=== PATIENT | female | born 1960 | race Caucasian/White ===

== ENCOUNTER 2022-01-11 11:04 | Emergency (ER) | payer OTHER, SELFPAY ==
--- NOTE | ~2022-01-11 | XR_ITS ---
EXAMINATION: XR CHEST CLINICAL INFORMATION: Chest tightness COMPARISON: None TECHNIQUE: Portable upright AP view of the chest was obtained. FINDINGS: Lungs are clear. There is no pneumothorax, pleural reaction, infiltrate, or groundglass opacity. The costophrenic sulci are clear. The heart is normal in size. The vascularity is normal. The hilar and mediastinal contours and visualized bony structures are unremarkable. XR/XR chest 1V IMPRESSION: Unremarkable examination.
[2022-01-11 11:07] VITALS: BMI 27.4
--- NOTE | 2022-01-11 11:09 | ECG_ITS ---
Test Reason : chest pressure Blood Pressure : / mmHG Vent. Rate : 116 BPM Atrial Rate : 116 BPM P-R Int : 166 ms QRS Dur : 076 ms QT Int : 326 ms P-R-T Axes : 071 079 045 degrees QTc Int : 453 ms Sinus tachycardia Possible Left atrial enlargement Borderline ECG No previous ECGs available Referred By: Generic ED Physician Electronically Signed By:TAMIKO OQUENDO MD
[2022-01-11 11:25] LABS: MANUAL DIFF FLAG NO
[2022-01-11 11:27] VITALS: BP 170/116; PULSE 124; RESP 26; TEMP 36.8; O2SAT 94
[2022-01-11 11:28] LABS: Basophils Percent Auto 0.2 % (0-2); Hematocrit 44.7 % (37.0-47.0); Hemoglobin 15.6 g/dl (12.0-16.0); Imm Gran Abs Auto 0.07 X10*3/uL (0.00-0.03); Imm Gran Pct Auto 0.5 % (0.0-0.4); Lymphocytes Absolute Auto 1.7 X10*3/uL (1.2-4.9); Lymphocytes Percent Auto 12.3 % (20-40); Mean Corpuscular HGB Conc 34.9 g/dl (31.0-35.0); Mean Corpuscular Hemoglobin 31.1 pg (27.0-33.0); Mean Corpuscular Volume 89.2 fL (80.0-98.0); Mean Platelet Volume 10.2 fL (9.4-12.3); Monocytes Absolute Auto 0.4 X10*3/uL (0.1-1.2); Monocytes Percent Auto 2.9 % (2-11); Neutrophils Absolute Auto 11.5 x10*3/uL (2.0-8.3); Neutrophils Percent Auto 84.1 % (45-73); Platelet Count 361 X10*3/uL (160-400); Red Blood Count 5.01 X10*6/uL (4.20-5.50); Red Cell Distribution Width 12.7 % (11.0-16.0); White Blood Count 13.7 X10*3/uL (4.8-10.8)
[2022-01-11 11:46] LABS: Troponin-I High Sensitivity 5.5 ng/L (<3.5-17.0)
[2022-01-11 11:55] VITALS: BP 175/98; PULSE 99; RESP 20; O2SAT 98
--- NOTE | 2022-01-11 12:16 | ED.CHESTPAIN ---
HPI - Chest Pain General Chief Complaint: Chest Pain Stated Complaint: chest pain Time Seen by Provider: 01/11/22 12:04 Source: patient Mode of arrival: ambulatory Limitations: no limitations History of Present Illness HPI narrative: Patient comes to the emergency room complaining of nausea vomiting for 24 hours Related Data Previous Rx's Medication Instructions Recorded ondansetron HCl 4 mg tablet 4 mg PO Q6H PRN nausea and 01/11/22 vomiting #14 tabs prochlorperazine maleate 10 mg 10 mg PO Q8H PRN nausea and 01/11/22 tablet (Compazine) vomiting #10 tabs Allergies Allergy/AdvReac Type Severity Reaction Status Date / Time Penicillins Allergy Unknown Verified 01/11/22 12:24 [facility] Social History Social History (System 01/11/22 @ 12:24 by Demetria Browning) Advance Directives: No Advance Directives Information Provided: No Physical Exam Vital Signs: Vital Signs: Last Vital Signs Temp 99.6 F 01/11/22 20:00 Pulse 96 01/11/22 20:00 Resp 18 01/11/22 20:00 BP 174/91 H 01/11/22 20:00 Pulse Ox 95 01/11/22 20:00 O2 Del Method 01/11/22 20:00 BMI result Body Mass Index 27.4 Course Course Course Narrative: Patient received IV fluids, Zofran, prochlorperazine. Patient tolerated well p.o. Chest x-ray negative, UA negative. No need for antibiotics. Sepsis not suspected MDM - Chest Pain Lab Data Result diagrams: 01/11/22 11:18 01/11/22 11:18 Labs: Lab Results 01/11/22 01/11/22 01/11/22 Range/Units 11:18 11:18 11:18 WBC 13.7 H (4.8-10.8) X10*3/uL RBC 5.01 (4.20-5.50) X10*6/uL Hgb 15.6 (12.0-16.0) g/dl Hct 44.7 (37.0-47.0) % MCV 89.2 (80.0-98.0) fL MCH 31.1 (27.0-33.0) pg MCHC 34.9 (31.0-35.0) g/dl RDW 12.7 (11.0-16.0) % Plt Count 361 (160-400) X10*3/uL MPV 10.2 (9.4-12.3) fL Immature Gran % (Auto) 0.5 H (0.0-0.4) % Neut % (Auto) 84.1 H (45-73) % Lymph % (Auto) 12.3 L (20-40) % Page % (Auto) 2.9 (2-11) % Eos % (Auto) 0.0 (0-4) % Baso % (Auto) 0.2 (0-2) % Lymph # (Auto) 1.7 (1.2-4.9) X10*3/uL [place] # (Auto) 0.4 (0.1-1.2) X10*3/uL Eos # (Auto) 0.0 (0.0-0.4) X10*3/uL Baso # (Auto) 0.0 (0.0-0.2) X10*3/uL Abs Immat Gran (auto) 0.07 H (0.00-0.03) X10*3/uL Absolute Neuts (auto) 11.5 H (2.0-8.3) x10*3/uL Absolute Nucleated RBC 0.000 (0.0-0.012) X10*3/uL Nucleated RBC % (auto) 0.0 (0.0-0.2) /100WBC Sodium 142 (135-145) mmol/L Potassium 4.0 (3.3-5.1) mmol/L Chloride 105 (96-108) mmol/L Carbon Dioxide 21 L (22-29) mmol/L Anion Gap 20 (12-20) BUN 23 H (9-16) mg/dL Creatinine 1.09 (0.5-1.4) mg/dL Estim Creat Clear Calc 49.6 Estimated GFR 51 Random Glucose 151 H (60-115) mg/dL Calcium 10.5 H (8.4-10.2) mg/dL Total Bilirubin 0.9 (0.0-1.0) mg/dL Direct Bilirubin 0.3 (0.0-0.5) mg/dL AST 23 (5-31) U/L ALT 21 (0-31) U/L Alkaline Phosphatase 25 L (39-117) U/L Troponin I High Sens 5.5 (<3.5-17.0) ng/L Total Protein 8.2 H (6.5-8.0) g/dL Albumin 4.9 (3.5-5.0) g/dL Lipase 25 (8-78) U/L Urine Color Urine Appearance Urine pH (5.0-8.0) Ur Specific [place] (1.005-1.025) Urine Protein (NEG-TRACE) MG/DL Urine Glucose (UA) (NEG) MG/DL Urine Ketones (NEG) MG/DL Urine Blood (NEG) Urine Nitrite (NEG) Ur Leukocyte Esterase (NEG) Urine RBC (0) /HPF Urine WBC (0-4) /HPF Ur Squamous Epith Cells /LPF Urine Bacteria /LPF COVID-19 (HERBIE) (Negative) COVID-19 Clin Com 01/11/22 01/11/22 Range/Units 13:05 16:01 WBC (4.8-10.8) X10*3/uL RBC (4.20-5.50) X10*6/uL Hgb (12.0-16.0) g/dl Hct (37.0-47.0) % MCV (80.0-98.0) fL MCH (27.0-33.0) pg MCHC (31.0-35.0) g/dl RDW (11.0-16.0) % Plt Count (160-400) X10*3/uL MPV (9.4-12.3) fL Immature Gran % (Auto) (0.0-0.4) % Neut % (Auto) (45-73) % Lymph % (Auto) (20-40) % Page % (Auto) (2-11) % Eos % (Auto) (0-4) % Baso % (Auto) (0-2) % Lymph # (Auto) (1.2-4.9) X10*3/uL [place] # (Auto) (0.1-1.2) X10*3/uL Eos # (Auto) (0.0-0.4) X10*3/uL Baso # (Auto) (0.0-0.2) X10*3/uL Abs Immat Gran (auto) (0.00-0.03) X10*3/uL Absolute Neuts (auto) (2.0-8.3) x10*3/uL Absolute Nucleated RBC (0.0-0.012) X10*3/uL Nucleated RBC % (auto) (0.0-0.2) /100WBC Sodium (135-145) mmol/L Potassium (3.3-5.1) mmol/L Chloride (96-108) mmol/L Carbon Dioxide (22-29) mmol/L Anion Gap (12-20) BUN (9-16) mg/dL Creatinine (0.5-1.4) mg/dL Estim Creat Clear Calc Estimated GFR Random Glucose (60-115) mg/dL Calcium (8.4-10.2) mg/dL Total Bilirubin (0.0-1.0) mg/dL Direct Bilirubin (0.0-0.5) mg/dL AST (5-31) U/L ALT (0-31) U/L Alkaline Phosphatase (39-117) U/L Troponin I High Sens (<3.5-17.0) ng/L Total Protein (6.5-8.0) g/dL Albumin (3.5-5.0) g/dL Lipase (8-78) U/L Urine Color YELLOW Urine Appearance CLEAR Urine pH 7.0 (5.0-8.0) Ur Specific [place] 1.020 (1.005-1.025) Urine Protein NEG (NEG-TRACE) MG/DL Urine Glucose (UA) NEG (NEG) MG/DL Urine Ketones 15 (NEG) MG/DL Urine Blood TRACE (NEG) Urine Nitrite NEG (NEG) Ur Leukocyte Esterase NEG (NEG) Urine RBC 1-4 (0) /HPF Urine WBC 1-4 (0-4) /HPF Ur Squamous Epith Cells 1+ /LPF Urine Bacteria 1+ /LPF COVID-19 (HERBIE) Negative (Negative) COVID-19 Clin Com See Note Discharge Plan Discharge Clinical Impression: Nausea & vomiting Patient Disposition: Home, Self-Care Instructions: Acute Nausea and Vomiting (ED) Additional Instructions: Please follow-up with your primary care physician tomorrow. If you have any worsening or new symptoms, please return to the emergency room or call 911 Prescriptions: New ondansetron HCl 4 mg tablet 4 mg PO Q6H PRN (Reason: nausea and vomiting) Qty: 14 0RF prochlorperazine maleate [Compazine] 10 mg tablet 10 mg PO Q8H PRN (Reason: nausea and vomiting) Qty: 10 0RF Rx Instructions: Uses medication of Zofran does not work
[2022-01-11] MEDS: 0.9 % Sodium Chloride 1,000 ML 999 ML IVCONT (13:03)
[2022-01-11] MEDS: ondansetron HCL 4 MG/2 ML VIAL IVPUSH (13:03)
[2022-01-11 13:34] LABS: IDNOW Serial# 16C4AD1C
[2022-01-11 13:35] LABS: COVID-19 Test Negative (Negative)
[2022-01-11 13:48] LABS: Alanine Aminotransferase 21 U/L (0-31); Albumin Level 4.9 g/dL (3.5-5.0); Alkaline Phosphatase 25 U/L (39-117); Anion Gap 20 (12-20); Aspartate Amino Transferase 23 U/L (5-31); Bilirubin Direct 0.3 mg/dL (0.0-0.5); Bilirubin Total 0.9 mg/dL (0.0-1.0); Blood Urea Nitrogen 23 mg/dL (9-16); Calcium 10.5 mg/dL (8.4-10.2); Carbon Dioxide 21 mmol/L (22-29); Chloride 105 mmol/L (96-108); Creatinine Clr Calc Pharmacy 49.6; Estimated Glomerular Filt Rate 51; Glucose Random 151 mg/dL (60-115); Lipase 25 U/L (8-78); Sodium 142 mmol/L (135-145); Total Protein 8.2 g/dL (6.5-8.0)
[2022-01-11 15:55] VITALS: BP 149/81; PULSE 102; RESP 16; TEMP 36.5; O2SAT 97
[2022-01-11 16:08] LABS: Appearance Urine CLEAR; Color Urine YELLOW; Glucose Urine UA NEG (NEG); Leukocyte Esterase Urine NEG (NEG); Nitrite Urine NEG (NEG); UACC Culture Trigger NO; Urine Blood TRACE (NEG); Urine Ketones 15 MG/DL (NEG); Urine Protein NEG (NEG-TRACE)
[2022-01-11 16:21] LABS: Bacteria Urine 1+ /LPF; Squamous Epithelial Cell Urine 1+ /LPF
[2022-01-11] MEDS: Prochlorperazine Edisylate 10 MG/2 ML VIAL IVPUSH (17:33)
[2022-01-11 18:43] VITALS: BP 128/79; PULSE 90; RESP 16; TEMP 37.7; O2SAT 96
--- NOTE | 2022-01-11 19:04 | PC.NURSE ---
Assumed care of this pt. at 1900 - report from Sasha Bronson RN
[2022-01-11 20:00] VITALS: BP 174/91; PULSE 96; RESP 18; TEMP 37.6; O2SAT 95
== END 2022-01-11 21:28 | disposition home or self-care (01) ==
PROVIDERS: Emergency Provider Emergency Medicine
DX: R07.89 Other chest pain (principal); R11.2 Nausea with vomiting, unspecified; Z79.899 Other long term (current) drug therapy; Z20.822 Contact with and (suspected) exposure to COVID-19
CPT/HCPCS: 36415; 71045; 80048; 80076; 81001; 83690; 84484; 85025; 87635; 93005; 96361; 96374; 96375; 99284; J2405

== ENCOUNTER 2022-03-26 03:15 | Emergency (ER) | payer OTHER, SELFPAY ==
--- NOTE | ~2022-03-26 | CT_ITS ---
EXAMINATION: CT ABDOMEN AND PELVIS WITH CONTRAST CLINICAL INFORMATION: Intractable vomiting COMPARISON: None TECHNIQUE: Multidetector volumetric images were obtained from the superior aspect of the liver through the pubic symphysis following administration 85 mL of Omnipaque 350 intravenous contrast. Sagittal and coronal reformatted images were obtained on the technologist's workstation. Oral contrast: No This CT examination was performed using dose optimization techniques as appropriate, variously including the following: *Automated exposure control *Adjustment of mA and/or kV according to patient size (this includes techniques or standardized protocols for targeted exams where dose is matched to indication/reason for exam; i.e. extremities or head) *Use of iterative reconstruction technique DLP: 544 mGy-cm FINDINGS: LUNG BASES: The lung bases are clear. The heart size is normal. LIVER, GALLBLADDER, AND BILIARY TREE: The liver is normal in size, shape, and attenuation. There is a 1.3 cm hypodensity segment for be most likely on the basis. There is a large gallstone without wall thickening or pericholecystic fluid collection. The stone measures 2.1 cm. PANCREAS: Unremarkable. SPLEEN: The spleen is normal size. There are punctate hypodensities in the spleen question cyst or tiny infarcts. ADRENAL GLANDS: Unremarkable. KIDNEYS AND URETERS: The kidneys are normal in size, shape, and attenuation. There are bilateral peripelvic renal cysts. No perinephric stranding. There are bilateral renal cysts. The largest exophytic right renal cyst measures 3.9 cm lower pole right kidney BLADDER: Unremarkable. GASTROINTESTINAL TRACT: There is scattered colonic diverticulosis, stool and gas without distention. There is no diverticulitis, obstruction. The small bowel loops are normal caliber. Appendix is normal caliber. No free air or free fluid seen. ABDOMINAL WALL: No significant hernia is appreciated. LYMPH NODES: Normal. VASCULAR: Unremarkable. PELVIC VISCERA: The uterus is anteverted with thickened fundal endometrial canal. This could be secondary to abnormal uterine bleeding or cervical stenosis. No adnexal mass is seen. There is no free fluid. There are several phleboliths seen in the pelvis. OSSEOUS STRUCTURES: Grade 1 retrolisthesis L2-L3 over L4 is seen. There are degenerative disc changes with ventral spondylosis. No lytic or sclerotic process seen. CT/CT abdomen pelvis w IV con IMPRESSION: And enlarged enlarged endometrial canal secondary to underlying endometrial lesion, hematoma or cervical stenosis. It is of normal for patient's age. Recommend gynecological consult. Scattered colonic diverticulosis without diverticulitis. Normal appendix and small bowel loops. Cholelithiasis without wall thickening. Bilateral renal peripelvic and cortical cysts. Fleischner guidelines were followed.
[2022-03-26 03:26] VITALS: BP 154/101; PULSE 120; RESP 25; TEMP 36.8; O2SAT 98; BMI 25.7
--- NOTE | 2022-03-26 03:30 | ECG_ITS ---
Test Reason : nausea Blood Pressure : / mmHG Vent. Rate : 102 BPM Atrial Rate : 102 BPM P-R Int : 160 ms QRS Dur : 082 ms QT Int : 332 ms P-R-T Axes : 061 048 028 degrees QTc Int : 432 ms Sinus tachycardia Intra-ventricular conduction delay Nonspecific ST abnormality Abnormal ECG No previous ECGs available Referred By: Vilma Durant Electronically Signed By:ROSALIND QUINTEROS MD
--- NOTE | 2022-03-26 03:40 | ED.NAVMDI ---
HPI - Nausea/Vomiting/Diarrhea General Chief complaint: General Medical Stated complaint: dry heaving, body fatigue, requesting fluids Time Seen by Provider: 03/26/22 03:37 Source: patient and old records reviewed Mode of arrival: ambulatory Limitations: no limitations History of Present Illness HPI Narrative: 61 yo female with hx of HTN, HLD here with c/o weakness, nausea, vomiting since after a trip to [place]. No abdominal pain, no sick contacts. No headaches. No other symptoms. This happened one other time in January. She tried medications from urgent care without relief and feels very dehydrated. MD elicited complaint: nausea and vomiting Onset (ago): day(s) (4) Description of vomiting: watery Associated nausea: Yes Associated abdominal pain: No Location of pain: none Severity: moderate Exacerbating factors: eating Relieving factors: none Context: other (hx of a similar episode) Associated symptoms: loss of appetite, malaise, nausea/vomiting and weakness Treatment prior to arrival: other (tried zofran ) Related Data Previous Rx's Medication Instructions Recorded ondansetron HCl 4 mg tablet 4 mg PO Q6H PRN nausea and 01/11/22 vomiting #14 tabs prochlorperazine maleate 10 mg 10 mg PO Q8H PRN nausea and 01/11/22 tablet (Compazine) vomiting #10 tabs Allergies Allergy/AdvReac Type Severity Reaction Status Date / Time Penicillins Allergy Unknown Verified 01/11/22 12:24 Review of Systems Review of Systems: Constitutional : No Weight loss, No Fever, No Chills ENT/Mouth : No sore throat, No Rhinorrhea Eyes: No Swelling, No Redness Cardiovascular : No Chest Pain, No SOB, NoEdema Respiratory : No Cough, No Sputum, No Wheezing Gastrointestinal : Positive Nausea, Positive Vomiting, no Diarrhea, no abdominal Pain, No Hematochezia, No Melena Genitourinary : No Dysuria, No Urinary Frequency, No Hematuria, No Urgency Musculoskeletal : No joint pain, No Myalgias, No Joint Swelling Skin : No Skin Lesions, No rash Neuro : pos Weakness, No Numbness, No Dizziness, No Headache Psych : No Anxiety/Panic, No Depression Heme/Lymph: No Bruising, No Lymphadenopathy Endocrine : No Polyuria, No Polydipsia All other systems reviewed and are negative. Gastrointestinal: Gastrointestinal: Reports nausea PMFSH Past Medical History Attestation statement: The following information was validated with the patient. Medical History HTN (hypertension) Hyperlipidemia Social History Social History (Updated 03/26/22 @ 04:12 by Vilma Durant DO) Patient Tobacco Use Status: Never used Tobacco Advance Directives: No Physical Exam Vital Signs: Vital Signs: Last Vital Signs Temp 97.9 F 03/26/22 05:12 Pulse 88 03/26/22 05:12 Resp 19 03/26/22 05:12 BP 149/92 H 03/26/22 05:12 Pulse Ox 97 03/26/22 05:12 O2 Del Method 03/26/22 05:12 BMI result Body Mass Index 25.7 Appearance: Alert. Oriented X3. No acute distress. Eyes: Pupils equal, round and reactive to light. ENT: Pharynx moderately dry MM Neck: Normal inspection. Neck supple. CVS: tachyardia heart rate and rhythm. Pulses normal. Respiratory: No respiratory distress. Breath sounds normal. Abdomen: Soft and non-tender. Skin: Skin warm and dry. Normal skin color. Normal skin turgor. Extremities: No lower extremity edema. No calf ttp Neuro: Oriented X 3. No motor deficit. No sensory deficit. Course Course Course Narrative: repeat trop flat - no CP/SOB, she was HTNive on arrival BP improved with IVF pateint feels much better, will try to tolerate PO UA pending - negative cannot tolerate PO - will put on rate of NS and obtain CT scan signed out to Dr. Sparrow pending CT scan and repeat PO challenge MDM - Nausea/Vomiting/Diarrhea MDM Narrative Medical decision making narrative: 61 yo female with hx of HTN, HLD here with c/o n/v weakness x 4 days - at this time no abdominal ttp hx of same in the past will need labs, IVF x 2L, nausea medications. Dispo per results and findings. WBC count likely acute phase reactant from vomiting hx of elevation in the past. Lab Data Result diagrams: 03/26/22 03:47 03/26/22 03:47 Labs: Lab Results 03/26/22 03/26/22 03/26/22 Range/Units 03:47 03:47 03:47 WBC 15.3 H (4.8-10.8) X10*3/uL RBC 4.56 (4.20-5.50) X10*6/uL Hgb 13.9 (12.0-16.0) g/dl Hct 40.0 (37.0-47.0) % MCV 87.7 (80.0-98.0) fL MCH 30.5 (27.0-33.0) pg MCHC 34.8 (31.0-35.0) g/dl RDW 13.0 (11.0-16.0) % Plt Count 346 (160-400) X10*3/uL MPV 9.8 (9.4-12.3) fL Immature Gran % (Auto) 0.4 (0.0-0.4) % Neut % (Auto) 72.7 (45-73) % Lymph % (Auto) 17.7 L (20-40) % [place] % (Auto) 9.0 (2-11) % Eos % (Auto) 0.0 (0-4) % Baso % (Auto) 0.2 (0-2) % Lymph # (Auto) 2.7 (1.2-4.9) X10*3/uL [place] # (Auto) 1.4 H (0.1-1.2) X10*3/uL Eos # (Auto) 0.0 (0.0-0.4) X10*3/uL Baso # (Auto) 0.0 (0.0-0.2) X10*3/uL Abs Immat Gran (auto) 0.06 H (0.00-0.03) X10*3/uL Absolute Neuts (auto) 11.1 H (2.0-8.3) x10*3/uL Absolute Nucleated RBC 0.000 (0.0-0.012) X10*3/uL Nucleated RBC % (auto) 0.0 (0.0-0.2) /100WBC Sodium 136 (135-145) mmol/L Potassium 3.5 (3.3-5.1) mmol/L Chloride 97 (96-108) mmol/L Carbon Dioxide 21 L (22-29) mmol/L Anion Gap 22 H (12-20) BUN 34 H (9-16) mg/dL Creatinine 1.16 (0.5-1.4) mg/dL Estim Creat Clear Calc 47.0 Estimated GFR 47 Random Glucose 122 H (60-115) mg/dL Calcium 9.6 D (8.4-10.2) mg/dL Magnesium 1.9 (1.6-2.6) mg/dL Total Bilirubin 1.4 H (0.0-1.0) mg/dL Direct Bilirubin 0.3 (0.0-0.5) mg/dL AST 27 (5-31) U/L ALT 22 (0-31) U/L Alkaline Phosphatase 19 L D (39-117) U/L Troponin I High Sens (<3.5-17.0) ng/L Total Protein 7.6 (6.5-8.0) g/dL Albumin 4.3 (3.5-5.0) g/dL Lipase 24 (8-78) U/L Urine Color Urine Appearance Urine pH (5.0-9.0) Ur Specific [place] (1.005-1.025) Urine Protein (Neg-Trace) mg/dL Urine Glucose (UA) (Negative) mg/dL Urine Ketones (Negative) mg/dL Urine Blood (Negative) Urine Nitrite (Negative) Ur Leukocyte Esterase (Negative) Urine RBC (0-2) /HPF Urine WBC (0-5) /HPF Ur Squamous Epith Cells (0-2) /HPF Urine Bacteria (None Seen) Hyaline Casts (0-2) /LPF Ethyl Alcohol mg/dL COVID-19 (HERBIE) Negative (Negative) COVID-19 Clin Com See Note 03/26/22 03/26/22 03/26/22 Range/Units 03:47 03:47 04:47 WBC (4.8-10.8) X10*3/uL RBC (4.20-5.50) X10*6/uL Hgb (12.0-16.0) g/dl Hct (37.0-47.0) % MCV (80.0-98.0) fL MCH (27.0-33.0) pg MCHC (31.0-35.0) g/dl RDW (11.0-16.0) % Plt Count (160-400) X10*3/uL MPV (9.4-12.3) fL Immature Gran % (Auto) (0.0-0.4) % Neut % (Auto) (45-73) % Lymph % (Auto) (20-40) % [place] % (Auto) (2-11) % Eos % (Auto) (0-4) % Baso % (Auto) (0-2) % Lymph # (Auto) (1.2-4.9) X10*3/uL [place] # (Auto) (0.1-1.2) X10*3/uL Eos # (Auto) (0.0-0.4) X10*3/uL Baso # (Auto) (0.0-0.2) X10*3/uL Abs Immat Gran (auto) (0.00-0.03) X10*3/uL Absolute Neuts (auto) (2.0-8.3) x10*3/uL Absolute Nucleated RBC (0.0-0.012) X10*3/uL Nucleated RBC % (auto) (0.0-0.2) /100WBC Sodium (135-145) mmol/L Potassium (3.3-5.1) mmol/L Chloride (96-108) mmol/L Carbon Dioxide (22-29) mmol/L Anion Gap (12-20) BUN (9-16) mg/dL Creatinine (0.5-1.4) mg/dL Estim Creat Clear Calc Estimated GFR Random Glucose (60-115) mg/dL Calcium (8.4-10.2) mg/dL Magnesium (1.6-2.6) mg/dL Total Bilirubin (0.0-1.0) mg/dL Direct Bilirubin (0.0-0.5) mg/dL AST (5-31) U/L ALT (0-31) U/L Alkaline Phosphatase (39-117) U/L Troponin I High Sens 18.8 H D 18.4 H (<3.5-17.0) ng/L Total Protein (6.5-8.0) g/dL Albumin (3.5-5.0) g/dL Lipase (8-78) U/L Urine Color Urine Appearance Urine pH (5.0-9.0) Ur Specific [place] (1.005-1.025) Urine Protein (Neg-Trace) mg/dL Urine Glucose (UA) (Negative) mg/dL Urine Ketones (Negative) mg/dL Urine Blood (Negative) Urine Nitrite (Negative) Ur Leukocyte Esterase (Negative) Urine RBC (0-2) /HPF Urine WBC (0-5) /HPF Ur Squamous Epith Cells (0-2) /HPF Urine Bacteria (None Seen) Hyaline Casts (0-2) /LPF Ethyl Alcohol < 10 mg/dL COVID-19 (HERBIE) (Negative) COVID-19 Clin Com 03/26/22 Range/Units 06:33 WBC (4.8-10.8) X10*3/uL RBC (4.20-5.50) X10*6/uL Hgb (12.0-16.0) g/dl Hct (37.0-47.0) % MCV (80.0-98.0) fL MCH (27.0-33.0) pg MCHC (31.0-35.0) g/dl RDW (11.0-16.0) % Plt Count (160-400) X10*3/uL MPV (9.4-12.3) fL Immature Gran % (Auto) (0.0-0.4) % Neut % (Auto) (45-73) % Lymph % (Auto) (20-40) % [place] % (Auto) (2-11) % Eos % (Auto) (0-4) % Baso % (Auto) (0-2) % Lymph # (Auto) (1.2-4.9) X10*3/uL [place] # (Auto) (0.1-1.2) X10*3/uL Eos # (Auto) (0.0-0.4) X10*3/uL Baso # (Auto) (0.0-0.2) X10*3/uL Abs Immat Gran (auto) (0.00-0.03) X10*3/uL Absolute Neuts (auto) (2.0-8.3) x10*3/uL Absolute Nucleated RBC (0.0-0.012) X10*3/uL Nucleated RBC % (auto) (0.0-0.2) /100WBC Sodium (135-145) mmol/L Potassium (3.3-5.1) mmol/L Chloride (96-108) mmol/L Carbon Dioxide (22-29) mmol/L Anion Gap (12-20) BUN (9-16) mg/dL Creatinine (0.5-1.4) mg/dL Estim Creat Clear Calc Estimated GFR Random Glucose (60-115) mg/dL Calcium (8.4-10.2) mg/dL Magnesium (1.6-2.6) mg/dL Total Bilirubin (0.0-1.0) mg/dL Direct Bilirubin (0.0-0.5) mg/dL AST (5-31) U/L ALT (0-31) U/L Alkaline Phosphatase (39-117) U/L Troponin I High Sens (<3.5-17.0) ng/L Total Protein (6.5-8.0) g/dL Albumin (3.5-5.0) g/dL Lipase (8-78) U/L Urine Color Yellow Urine Appearance Clear Urine pH 6.0 (5.0-9.0) Ur Specific [place] 1.015 (1.005-1.025) Urine Protein 30 (1+) H (Neg-Trace) mg/dL Urine Glucose (UA) Negative (Negative) mg/dL Urine Ketones 15 (Negative) mg/dL Urine Blood Negative (Negative) Urine Nitrite Negative (Negative) Ur Leukocyte Esterase Negative (Negative) Urine RBC 0-2 (0-2) /HPF Urine WBC 0-5 (0-5) /HPF Ur Squamous Epith Cells 3-5 (0-2) /HPF Urine Bacteria None Seen (None Seen) Hyaline Casts 3-5 (0-2) /LPF Ethyl Alcohol mg/dL COVID-19 (HERBIE) (Negative) COVID-19 Clin Com ECG Data Attestation: I personally reviewed and interpreted this ECG as follows: ECG interpretation date: 03/26/22 ECG interpretation time: 04:19 Interpretation: Rate: 102 Rhythm: sinus tach [place]: normal Normal P waves. Normal JOSE. Normal QRS complex. ST T wave : no LUIS MANUEL, nonspecific qTC: normal prior studies: no acute ischemia The study has been interpreted contemporaneously by me. . Discharge Plan Discharge Clinical Impression: Acute dehydration Vomiting Qualifiers: Vomiting type: unspecified Nausea presence: with nausea Qualified Code(s): R11.2 - Nausea with vomiting, unspecified Patient Disposition: Still a Patient Prescriptions: No Action ondansetron HCl 4 mg tablet 4 mg PO Q6H PRN (Reason: nausea and vomiting) Qty: 14 0RF prochlorperazine maleate [Compazine] 10 mg tablet 10 mg PO Q8H PRN (Reason: nausea and vomiting) Qty: 10 0RF Rx Instructions: Uses medication of Zofran does not work
[2022-03-26] MEDS: Metoclopramide HCl 10 MG/2 ML VIAL IVPUSH (03:50)
[2022-03-26] MEDS: diphenhydrAMINE HCL 50 MG/ML VIAL 25 MG IVPUSH (03:50)
[2022-03-26] MEDS: 0.9 % Sodium Chloride 1,000 ML 999 ML IVCONT ×2 (03:53→03:58)
[2022-03-26 03:54] VITALS: BP 165/140; PULSE 102; RESP 17; TEMP 36.3; O2SAT 98
--- NOTE | 2022-03-26 03:55 | PC.NURSE ---
patient arrives to ED endorsing dry heaves since morning. she denies abdominal pain or tenderness. she states small amount of diarrhea that just began today and she couldn't keep dry heaves under control so came to ed. she denies chest pain or pain elsewhere. HR ST low 100s-EKG complete and given to MD lebron.
[2022-03-26 03:58] LABS: MANUAL DIFF FLAG NO
[2022-03-26 04:00] LABS: Basophils Percent Auto 0.2 % (0-2); Hemoglobin 13.9 g/dl (12.0-16.0); Imm Gran Abs Auto 0.06 X10*3/uL (0.00-0.03); Imm Gran Pct Auto 0.4 % (0.0-0.4); Lymphocytes Absolute Auto 2.7 X10*3/uL (1.2-4.9); Lymphocytes Percent Auto 17.7 % (20-40); Mean Corpuscular HGB Conc 34.8 g/dl (31.0-35.0); Mean Corpuscular Hemoglobin 30.5 pg (27.0-33.0); Mean Corpuscular Volume 87.7 fL (80.0-98.0); Mean Platelet Volume 9.8 fL (9.4-12.3); Monocytes Absolute Auto 1.4 X10*3/uL (0.1-1.2); Neutrophils Absolute Auto 11.1 x10*3/uL (2.0-8.3); Neutrophils Percent Auto 72.7 % (45-73); Platelet Count 346 X10*3/uL (160-400); Red Blood Count 4.56 X10*6/uL (4.20-5.50); White Blood Count 15.3 X10*3/uL (4.8-10.8)
[2022-03-26 04:20] LABS: Ethanol < 10 mg/dL
[2022-03-26 04:22] LABS: Troponin-I High Sensitivity 18.8 ng/L (<3.5-17.0)
[2022-03-26 04:26] LABS: Alanine Aminotransferase 22 U/L (0-31); Albumin Level 4.3 g/dL (3.5-5.0); Alkaline Phosphatase 19 U/L (39-117); Anion Gap 22 (12-20); Aspartate Amino Transferase 27 U/L (5-31); Bilirubin Direct 0.3 mg/dL (0.0-0.5); Bilirubin Total 1.4 mg/dL (0.0-1.0); Blood Urea Nitrogen 34 mg/dL (9-16); Calcium 9.6 mg/dL (8.4-10.2); Carbon Dioxide 21 mmol/L (22-29); Chloride 97 mmol/L (96-108); Estimated Glomerular Filt Rate 47; Glucose Random 122 mg/dL (60-115); Lipase 24 U/L (8-78); Magnesium 1.9 mg/dL (1.6-2.6); Potassium 3.5 mmol/L (3.3-5.1); Sodium 136 mmol/L (135-145); Total Protein 7.6 g/dL (6.5-8.0)
[2022-03-26 04:54] LABS: COVID-19 Test Negative (Negative)
[2022-03-26 05:12] VITALS: BP 149/92; PULSE 88; RESP 19; TEMP 36.6; O2SAT 97
[2022-03-26 05:16] LABS: Troponin-I High Sensitivity 18.4 ng/L (<3.5-17.0)
[2022-03-26] MEDS: 0.9 % Sodium Chloride 500 ML IV (05:40)
[2022-03-26 06:39] LABS: Appearance Urine Clear; Color Urine Yellow; Glucose Urine UA Negative (Negative); Leukocyte Esterase Urine Negative (Negative); Nitrite Urine Negative (Negative); Specific Gravity - Urine 1.015 (1.005-1.025); UMIC TRIGGER UACC YES; Urine Blood Negative (Negative); Urine Ketones 15 mg/dL (Negative); Urine Protein 30 (1+) mg/dL (Neg-Trace)
[2022-03-26 06:44] LABS: Bacteria Urine None Seen (None Seen); RBC Urine 0-2 /HPF (0-2); WBC Urine 0-5 /HPF (0-5)
--- NOTE | 2022-03-26 06:44 | PC.NURSE ---
patient provided with reyes pierre and crackers for PO challenge per MD Durant
[2022-03-26] MEDS: Magnesium Hydrox/Alum Hydrox 30 ML ORAL.SUSP 15 ML PO (07:29)
[2022-03-26] MEDS: ondansetron HCL 4 MG/2 ML VIAL IVPUSH (07:29)
[2022-03-26] MEDS: Lidocaine HCl Viscous 2 % 15 ML SOLUTION MUCOUS MEM (07:29)
[2022-03-26] MEDS: 0.9 % Sodium Chloride 1,000 ML 125 ML IVCONT (07:31)
[2022-03-26 07:35] VITALS: BP 165/93; PULSE 95; RESP 17; TEMP 37; O2SAT 96
[2022-03-26] MEDS: iohexoL 350 MG/ML 100 ML INFUS..BTL IV (08:46)
[2022-03-26 10:41] VITALS: BP 156/88; PULSE 85; RESP 14; TEMP 36.9; O2SAT 95
== END 2022-03-26 11:17 | disposition home or self-care (01) ==
PROVIDERS: Emergency Provider Emergency Medicine
DX: M79.10 Myalgia, unspecified site (principal); E86.0 Dehydration; R11.2 Nausea with vomiting, unspecified; Z20.822 Contact with and (suspected) exposure to COVID-19; Z79.899 Other long term (current) drug therapy
CPT/HCPCS: 36415; 74177; 80048; 80076; 81001; 82077; 83690; 83735; 84484; 85025; 87635; 93005; 96374; 96375; 99285; J1200; J2405; J2765; Q9967

== ENCOUNTER 2022-05-24 01:17 | Emergency (ER) | payer OTHER, SELFPAY ==
[2022-05-24 01:20] VITALS: BP 175/108; PULSE 126; RESP 18; TEMP 36.9; O2SAT 100; BMI 27.4
[2022-05-24 03:19] VITALS: BP 171/106; PULSE 118; RESP 20; TEMP 36.7; O2SAT 95
[2022-05-24] MEDS: Ondansetron ODT 4 MG TAB.RAPDIS TRANSLINGU (03:31)
[2022-05-24 03:42] LABS: MANUAL DIFF FLAG NO
[2022-05-24 03:43] LABS: Basophils Percent Auto 0.1 % (0-2); Hematocrit 39.3 % (37.0-47.0); Hemoglobin 14.2 g/dl (12.0-16.0); Imm Gran Abs Auto 0.06 X10*3/uL (0.00-0.03); Imm Gran Pct Auto 0.5 % (0.0-0.4); Lymphocytes Absolute Auto 1.3 X10*3/uL (1.2-4.9); Lymphocytes Percent Auto 9.9 % (20-40); Mean Corpuscular HGB Conc 36.1 g/dl (31.0-35.0); Mean Corpuscular Hemoglobin 31.4 pg (27.0-33.0); Mean Corpuscular Volume 86.9 fL (80.0-98.0); Mean Platelet Volume 9.9 fL (9.4-12.3); Monocytes Absolute Auto 0.5 X10*3/uL (0.1-1.2); Monocytes Percent Auto 3.7 % (2-11); Neutrophils Absolute Auto 10.9 x10*3/uL (2.0-8.3); Neutrophils Percent Auto 85.8 % (45-73); Platelet Count 349 X10*3/uL (160-400); Red Blood Count 4.52 X10*6/uL (4.20-5.50); Red Cell Distribution Width 12.9 % (11.0-16.0); White Blood Count 12.7 X10*3/uL (4.8-10.8)
[2022-05-24 04:21] LABS: Alanine Aminotransferase 22 U/L (0-31); Alkaline Phosphatase 24 U/L (39-117); Anion Gap 20 (12-20); Aspartate Amino Transferase 20 U/L (5-31); Bilirubin Total 0.7 mg/dL (0.0-1.0); Blood Urea Nitrogen 18 mg/dL (9-16); Calcium 10.8 mg/dL (8.4-10.2); Carbon Dioxide 21 mmol/L (22-29); Chloride 105 mmol/L (96-108); Creatinine Clr Calc Pharmacy 57.3; Estimated Glomerular Filt Rate 57; Glucose Random 164 mg/dL (60-115); Sodium 142 mmol/L (135-145); Total Protein 7.9 g/dL (6.5-8.0)
--- OUTSIDE RECORDS SUMMARY | 2022-05-24 04:30 | XMS_ITS ---
:1960 Author Care Team Providers Name Role Phone Walk-In Primary Care Provider Unavailable Allergies Code Code System Name Reaction Severity Status Onset Penicillins ? ? Active ? Medications Name Status Start Date Stop Date ? ? lisinopril Active ? Not available ondansetron 4 mg disintegrating tablet Active ? Not available Place 1 tablet every 6-8 hours by translingual route as needed for 5 days. ondansetron HCl (PF) 4 mg/2 mL injection solution Active ? Not available Take 2 mL by injection route. simvastatin Active ? Not available Problems None recorded. Procedures None recorded. Results Lab Results Date Name Specimen Result Interpretation Description Value Range Status Address ? 03/23/2022 Rapid SARS CoV Nasopharyngeal ? Rapid negative ? ? Urgent [place] 2 Ag, QL [place], Covid 19 [facility]: Respiratory [address] [place] 03/23/2022 Rapid Flu Nasopharyngeal ? Flu negative ? ? Urgent [place] (A+B) [place]: [address] [place] Past Encounters Encounter Date Diagnosis Provider 03/23/2022 Exposure to SARS-CoV-2; Nausea and Rache l Staci Shaffer PA-C: 6746 Vomiting; Generalized Aches [place] [id number], Ph. Social History None recorded. Vaccine List None recorded. Plan of Care Reminders Provider Appointments None recorded. ? ? Lab None recorded. ? ? Referral None recorded. ? ? Procedures None recorded. ? ? Surgeries None recorded. ? ? Imaging None recorded. ? ? Vitals Blood Pressure 150/106 mm[Hg]
--- OUTSIDE RECORDS SUMMARY | 2022-05-24 04:30 | XMS_ITS | Encounter Summary ---
:1960 Author Reason for Visit nausea, vomiting and chills x today Assessment and Plan Assessment Note Pt actively vomiting in office. Give PO zofran 4mg but unable to keep do wn. Given IM zofran in office after. Tolerated well. Recommend ORT with pedialyte/pediapops a nd water as well as bland diet advance as tolerated; RTC if unable to keep fluids down. PVU 1. Exposure to SARS-CoV-2 ? rapid SARS CoV 2 Ag, QL IA, respirato ry specimen ? rapid flu (A+B) 2. Nausea and vomiting ? ondansetron 4 mg disintegrating table t ? ondansetron HCl (PF) 4 mg/2 mL inject ion solution 3. Generalized aches and pains Discussion Note: None recorded.Patient educational handouts: No information available. Plan of Care Reminders Provider Appointments None recorded. ? ? Lab Rapid SARS CoV 2 Ag, QL IA, 03/23/2022 Ur gent [facility] Respiratory Specimen ? Rapid Flu (A+B) 03/23/2022 Urgent [facility] Referral None recorded. ? ? Procedures None recorded. ? ? Surgeries None recorded. ? ? Imaging None recorded. ? ? Medications Name Start Date ? ? lisinopril ? ondansetron 4 mg disintegrating tablet ? Place 1 tablet every 6-8 hours by translingual route as needed for 5 days. ondansetron HCl (PF) 4 mg/2 mL injection solution ? Take 2 mL by injection route. simvastatin ? Medications Administered Name Date ? ? ondansetron HCl (PF) 4 mg/2 mL injection solution 20 01-04-13T19:13:00 Take 2 mL by injection route. Vitals Blood Pressure 150/106 mm[Hg] Results Lab Results Date Name Specimen Result Interpretation Description Value Range Status Address ? 03/23/2022 Rapid SARS CoV Nasopharyngeal ? Rapid negative ? ? Urgent [place] 2 Ag, QL IA, Covid 19 Na [facility]: Respiratory [address] [facility]22 Rapid Flu Nasopharyngeal ? Flu negative ? ? [facility] [place] (A+B) [place]: [address] [facility] Allergies Code Code System Name Reaction Severity Onset Penicillins ? ? ? Problems None recorded. Procedures None recorded. Vaccine List None recorded. Social History None recorded. Functional Status Unknown. Past Encounters Encounter Date Diagnosis Provider 03/23/2022 Exposure to SARS-CoV-2; Nausea and Rache l Staci Shaffer PA-C: 6746 Vomiting; Generalized Aches [place] [id number], Ph. [phone] History of Present Illness Note: <div>Nausea and vomiting since this morning. Unable to keep fluids down. Chills, body aches. </div><div>Pt here in town visiting. </div><div>No fever. </div> Review of Systems None recorded. Physical Exam ? Abdominal Pain Exam Reported By: Patient Constitutional: General Appearance: NAD, no jaundice, alert and oriented, nausea, vomiting, ill appearing; lay ing on exam table with blanket Abdomen: Auscultation normal bowel so unds. Palpation no masses, tenderness: generalized Cardiovascular: Heart Auscultation: S1 prese nt, S2 present Lungs: Lungs: clear to auscultation bilaterally, no wheezing, no crackles Notes: <div>SKIN: warm, good turgor </div>
--- OUTSIDE RECORDS SUMMARY | 2022-05-24 04:30 | XMS_ITS | Continuity of Care Document ---
:1960 Author Organization [facility] Address [address] [place] [address], [address] Floor, [address] [place] [id number]- Care Team Providers Name Role Phone Nikkie Starks MD Primary Care Physician Encounter [facility] Date(s): 03/15/22 - 04/14/22 [facility] [address] [facility], 3rd Floor, [address] [place] [id number] Attending Physician: Alexia Benitez Admitting Physician: Alexia Benitez Referring Physician: AdmtrAlexia Allergies, Adverse Reactions, Alerts Substance Reaction Severity Status penicillins Active Immunizations Given and Recorded Vaccine Date Status Refusal Reason Hepatitis A Adult Vaccine1 08/01/18 Given Hepatitis A Adult Vaccine2 12/26/17 Given influenza virus vaccine, inactivated 06/27/12 Given 1Result Comment: [08/01/2018] hep A #22Result Comment: [12/26/2017] hep A #1 Medications azithromycin 500 mg oral tablet 1 tablet = 500 mg, By Mouth, Daily, for severe diarrhea during travel, # 3 tablet, 0 Refills, Maintenance, 12/26/17 11:20:41 EDT Start Date: 12/26/17 Stop Date: 12/29/17 Status: OrderedPrinivil 20 mg oral tablet 1 tablet = 20 mg, By Mouth, Daily, goal of SBP <130, # 30 tablet, 5 Refills, Maintenance, Tablet Start Date: 06/27/12 Status: OrderedSimvastatin By Mouth, 0 Refills, Maintenance, 12/26/17 10:54:21 EDT Start Date: 12/26/17 Status: Ordered Problem List Condition Confirmation Course Effective Status Health Informa nt Dates Status Advice on foreign travel Confirmed Active Central obesity Confirmed Active Hypercholesterolemia Confirmed 2004 Active Hypertension Confirmed 2004 Active Patient Care team information PersonnelName: Nikkie Starks MD Address: Address: [address] [place] [id number]
--- OUTSIDE RECORDS SUMMARY | 2022-05-24 04:30 | XMS_ITS | Continuity of Care Document ---
:1960 Author Organization [facility] Address [address] [place] [address], [address] Floor, [address] [place] [id number]- Care Team Providers Name Role Phone Nikkie Starks MD Primary Care Physician Encounter [facility] Date(s): 03/15/22 - 04/14/22 [facility] [address] [place] [address], [address] [place] [address], [address] [place] [id number] Allergies, Adverse Reactions, Alerts Substance Reaction Severity [...] information PersonnelName: Nikkie Starks MD Address: Address: [address] [place] [address] Primary Care [place], [place] [address]
[2022-05-24] MEDS: ondansetron HCL 4 MG/2 ML VIAL IVPUSH (05:33)
[2022-05-24] MEDS: Lactated Ringers 1,000 ML 999 ML IV (05:33)
[2022-05-24] MEDS: Ketorolac Tromethamine 15 MG/ML VIAL IVPUSH (05:33)
[2022-05-24 06:25] VITALS: BP 174/96; PULSE 101; RESP 16; TEMP 37.6; O2SAT 97
[2022-05-24] MEDS: 0.9 % Sodium Chloride 1,000 ML 999 ML IV (07:37)
[2022-05-24] MEDS: Metoclopramide HCl 10 MG/2 ML VIAL IVPUSH (07:37)
[2022-05-24] MEDS: diphenhydrAMINE HCL 50 MG/ML VIAL 25 MG IVPUSH (07:38)
[2022-05-24 08:06] LABS: Appearance Urine Clear; Color Urine Yellow; Glucose Urine UA Negative (Negative); Leukocyte Esterase Urine Negative (Negative); Nitrite Urine Negative (Negative); Specific Gravity - Urine 1.025 (1.005-1.025); UMIC TRIGGER UACC YES; Urine Blood Negative (Negative); Urine Ketones 80 mg/dL (Negative); Urine Protein 100 (2+) mg/dL (Neg-Trace)
[2022-05-24 08:11] LABS: Bacteria Urine None Seen (None Seen); Hyaline Casts Urine 0-2 /LPF (0-2); Squamous Epithelial Cell Urine 0-2 /HPF (0-2); WBC Urine 0-5 /HPF (0-5)
--- NOTE | 2022-05-24 08:37 | ED.NAVMDI ---
HPI - Nausea/Vomiting/Diarrhea General Chief complaint: Nausea/Vomiting/Diarrhea Stated complaint: nausea, vomiting diarrhea Time Seen by Provider: 05/24/22 05:27 Source: patient Mode of arrival: EMS Limitations: no limitations History of Present Illness HPI Narrative: 61-year-old female who presents emergency department for evaluation of nausea, vomiting and abdominal pain. She states that she became ill yesterday at 06:30 hours. She states that she had multiple episodes of vomiting too numerous to count. She also had multiple episodes of diarrhea too numerous to count. She complained of lower abdominal pain. She points to her lower abdomen and states the pain is a constant, cramping/bloating sensation which is 4/10 at its worst. She did not take her temperature had subjective hot and cold sensations. She also felt short of breath. She states that this is her 3rd episode these symptoms. She states that she 1st developed nausea, vomiting, diarrhea and abdominal pain and January of 2022 then March 2022. She has not seen a ocean fishing guide. Related Data Previous Rx's Medication Instructions Recorded ondansetron HCl 4 mg tablet 4 mg PO Q6H PRN nausea and 01/11/22 vomiting #14 tabs prochlorperazine maleate 10 mg 10 mg PO Q8H PRN nausea and 01/11/22 tablet (Compazine) vomiting #10 tabs metoclopramide HCl 10 mg tablet 10 mg PO Q6H PRN nausea and 05/24/22 (Reglan) vomiting #14 tabs Allergies Allergy/AdvReac Type Severity Reaction Status Date / Time Penicillins Allergy Unknown Verified 01/11/22 12:24 Review of Systems Review of Systems: Yes all other systems are reviewed and are negative [facility] Past Medical History [facility] Narrative: Past medical history: Idiopathic intracranial hypertension (pseudotumor cerebri), hypertension, hyperlipidemia. Past surgical history: Bilateral tubal ligation. Social history: She denies tobacco use. She drinks 2 glasses of wine daily. She denies drug use. Medical History HTN (hypertension) Hyperlipidemia Social History Social History Patient Tobacco Use Status: Never used Tobacco Advance Directives: No Advance Directives Information Provided: Yes Patient : No Physical Exam Vital Signs: Vital Signs: Last Vital Signs Temp 99.6 F 05/24/22 06:25 Pulse 101 H 05/24/22 06:25 Resp 16 05/24/22 06:25 BP 174/96 H 05/24/22 06:25 Pulse Ox 97 05/24/22 06:25 O2 Del Method 05/24/22 06:25 BMI result Body Mass Index 27.4 Const: General: cooperative and no acute distress Orientation/consciousness: oriented to person and oriented to place Limitations: no limitations HEENT: Head: Yes normal to inspection, Yes normocephalic and Yes atraumatic Ears: external ears normal General nose exam: Normal external nose present Face and sinus: Yes normal facial exam Mouth: Normal oral and palatal mucosa present Throat: Yes posterior oropharynx normal Eyes: General: appearance normal, both eyes and all related structures Pupils: Equal, round and reactive pupils present Neck: Neck: Yes normal visual inspection, Yes no lymphadenopathy, Yes trachea midline and Yes supple Chest: Chest palpation & inspection: normal inspection of the chest and normal palpation of entire chest wall Resp: Effort & Inspection: normal respiratory effort and able to speak in complete sentences Auscultation: clear to auscultation bilaterally Cardio: Rate: regular rate Rhythm: regular rhythm Heart sounds: S1 normal heart sound present, S2 normal heart sound present and no murmurs GI: Inspection: Yes normal to inspection Palpation (GI): Soft to palpation, Tenderness to palpation present (GI) in the LLQ (Moderate), in the RLQ (Moderate) and suprapubicly (Mild) and no guarding Auscultation: normal bowel sounds : General: Yes no CVA tenderness Back/Spine/Pelvis: Back: no CVA tenderness Skin: General skin exam: no rashes or lesions noted Neuro: General: oriented to person and oriented to place Cranial nerves: Yes CN's II-XII intact bilaterally and Yes Equal, round and reactive pupils present Cognition (Neuro): normal cognition Motor exam (neuro): 5/5 motor strength present throughout Extrem: General: Yes normal to inspection Psych: Appearance: grossly normal Speech and movement: Normal speech and movement present Affect: normal affect Attitude: cooperative Thought process: Normal thought process present Thought content: Normal thought content present Course Course Course Narrative: 61-year-old female who presents emergency department for evaluation of nausea, vomiting, diarrhea and lower abdominal pain that started yesterday at 06:30 hours: This is her 3rd episode of with this presentation (January 2022 and March 2022). Patient's vital signs did reveal an elevated blood pressure of 175/108 and elevated pulse of 126. Patient did have lower abdominal tenderness. Laboratory evaluation was ordered. She was also ordered to get normal saline x1 L , Toradol 30 mg IV and Zofran 4 mg IV 0852: Laboratory evaluation WBC elevated 12,700, CO2 low 21, BUN elevated 18, glucose elevated 164. The patient got minimal improvement with the above treatment. Patient was ordered to get Reglan 10 mg IV and Benadryl 25 mg IV. Patient was also ordered to get a 2 L of lactated Ringer's. The patient will be discharged home with a prescription for Reglan. Given the fact that this is the patient's 3rd episode, advised her to follow-up with her PCP and possibly have a ocean fishing guide here as well. Medications Administered Discontinued Medications Generic Name Dose Route Start Last Admin Trade Name Freq PRN Reason Stop Dose Admin Diphenhydramine HCl 25 mg 05/24/22 07:17 05/24/22 07:38 Diphenhydramine Hcl 50 Mg/Ml Vial IVPUSH 05/24/22 07:18 25 mg ONCE ONE Administration Lactated Ringer's 1,000 mls @ 999 mls/hr 05/24/22 05:30 05/24/22 07:46 Lr IV 05/24/22 06:30 Infused .Q1H1M AMY Infusion Sodium Chloride 1,000 mls @ 999 mls/hr 05/24/22 07:30 05/24/22 07:37 Ns IV 05/24/22 08:30 999 mls/hr .Q1H1M AMY Administration Ketorolac Tromethamine 15 mg 05/24/22 05:27 05/24/22 05:33 Ketorolac Tromethamine 15 Mg/Ml Vial IVPUSH 05/24/22 05:28 15 mg ONCE STA Administration Metoclopramide HCl 10 mg 05/24/22 07:17 05/24/22 07:37 Metoclopramide Hcl 10 Mg/2 Ml Vial IVPUSH 05/24/22 07:18 10 mg ONCE ONE Administration Ondansetron HCl 4 mg 05/24/22 03:22 05/24/22 03:31 Ondansetron Odt 4 Mg Tab.Rapdis TRANSLINGU 05/24/22 03:23 4 mg ONCE ONE Administration Ondansetron HCl 4 mg 05/24/22 05:27 05/24/22 05:33 Ondansetron Hcl 4 Mg/2 Ml Vial IVPUSH 05/24/22 05:28 4 mg ONCE ONE Administration Medical Decision Making Lab Data Result Diagrams: 05/24/22 03:37 05/24/22 03:37 Labs: Lab Results 05/24/22 05/24/22 05/24/22 Range/Units 03:37 03:37 07:39 WBC 12.7 H (4.8-10.8) X10*3/uL RBC 4.52 (4.20-5.50) X10*6/uL Hgb 14.2 (12.0-16.0) g/dl Hct 39.3 (37.0-47.0) % MCV 86.9 (80.0-98.0) fL MCH 31.4 (27.0-33.0) pg MCHC 36.1 H (31.0-35.0) g/dl RDW 12.9 (11.0-16.0) % Plt Count 349 (160-400) X10*3/uL MPV 9.9 (9.4-12.3) fL Immature Gran % (Auto) 0.5 H (0.0-0.4) % Neut % (Auto) 85.8 H (45-73) % Lymph % (Auto) 9.9 L (20-40) % [place] % (Auto) 3.7 (2-11) % Eos % (Auto) 0.0 (0-4) % Baso % (Auto) 0.1 (0-2) % Lymph # (Auto) 1.3 (1.2-4.9) X10*3/uL [place] # (Auto) 0.5 (0.1-1.2) X10*3/uL Eos # (Auto) 0.0 (0.0-0.4) X10*3/uL Baso # (Auto) 0.0 (0.0-0.2) X10*3/uL Abs Immat Gran (auto) 0.06 H (0.00-0.03) X10*3/uL Absolute Neuts (auto) 10.9 H (2.0-8.3) x10*3/uL Absolute Nucleated RBC 0.000 (0.0-0.012) X10*3/uL Nucleated RBC % (auto) 0.0 (0.0-0.2) /100WBC Sodium 142 (135-145) mmol/L Potassium 4.0 (3.3-5.1) mmol/L Chloride 105 (96-108) mmol/L Carbon Dioxide 21 L (22-29) mmol/L Anion Gap 20 (12-20) BUN 18 H (9-16) mg/dL Creatinine 0.98 (0.5-1.4) mg/dL Estim Creat Clear Calc 57.3 Estimated GFR 57 Random Glucose 164 H (60-115) mg/dL Calcium 10.8 H D (8.4-10.2) mg/dL Total Bilirubin 0.7 (0.0-1.0) mg/dL AST 20 (5-31) U/L ALT 22 (0-31) U/L Alkaline Phosphatase 24 L (39-117) U/L Total Protein 7.9 (6.5-8.0) g/dL Albumin 5.0 (3.5-5.0) g/dL Urine Color Yellow Urine Appearance Clear Urine pH 7.0 (5.0-9.0) Ur Specific [place] 1.025 (1.005-1.025) Urine Protein 100 (2+) H (Neg-Trace) mg/dL Urine Glucose (UA) Negative (Negative) mg/dL Urine Ketones 80 (Negative) mg/dL Urine Blood Negative (Negative) Urine Nitrite Negative (Negative) Ur Leukocyte Esterase Negative (Negative) Urine RBC 3-5 H (0-2) /HPF Urine WBC 0-5 (0-5) /HPF Ur Squamous Epith Cells 0-2 (0-2) /HPF Urine Bacteria None Seen (None Seen) Hyaline Casts 0-2 (0-2) /LPF Discharge Plan Discharge Clinical Impression: Acute dehydration Vomiting Qualifiers: Vomiting type: unspecified Nausea presence: with nausea Qualified Code(s): R11.2 - Nausea with vomiting, unspecified Diarrhea Qualifiers: Diarrhea type: unspecified type Qualified Code(s): R19.7 - Diarrhea, unspecified Abdominal pain Qualifiers: Abdominal location: lower abdomen, unspecified Qualified Code(s): R10.30 - Lower abdominal pain, unspecified Patient Disposition: Still a Patient Instructions: Acute Abdominal Pain (ED) Additional Instructions: For nausea and vomiting take the following 2 medications together: Reglan (metoclopramide) in 10 mg, 1 pill Benadryl 25 mg, 2 pills After you take these medications, lie down in a dark quiet room and try to fall asleep. These medications will make you sleepy, do not drive or work after taking these medications. Follow-up with your doctor in 2 days. Please return to the emergency department if your symptoms get worse or if you develop any symptoms that are concerning to you. In the past, your diagnosed with gastroenteritis (nausea and vomiting usually caused by a virus), however this is your 3rd episode of these symptoms, I believe you should follow-up with your doctor and get referred to a ocean fishing guide further testing. Prescriptions: New metoclopramide HCl [Reglan] 10 mg tablet 10 mg PO Q6H PRN (Reason: nausea and vomiting) Qty: 14 0RF No Action ondansetron HCl 4 mg tablet 4 mg PO Q6H PRN (Reason: nausea and vomiting) Qty: 14 0RF prochlorperazine maleate [Compazine] 10 mg tablet 10 mg PO Q8H PRN (Reason: nausea and vomiting) Qty: 10 0RF Rx Instructions: Uses medication of Zofran does not work
[2022-05-24 08:41] VITALS: BP 190/109; PULSE 114; RESP 18
[2022-05-24 08:58] VITALS: TEMP 37.2
[2022-05-24 10:04] VITALS: BP 170/97; PULSE 94; RESP 16; O2SAT 99
== END 2022-05-24 10:06 | disposition home or self-care (01) ==
PROVIDERS: Emergency Provider Emergency Medicine Emergency Medical Services; PCP Internal Medicine
DX: E86.0 Dehydration (principal); R11.2 Nausea with vomiting, unspecified; R19.7 Diarrhea, unspecified; R10.30 Lower abdominal pain, unspecified; I10 Essential (primary) hypertension; E78.5 Hyperlipidemia, unspecified
CPT/HCPCS: 36415; 80053; 81001; 81003; 85025; 96361; 96374; 96375; 99284; 99285; J1200; J1885; J2405; J2765

== ENCOUNTER 2022-07-13 08:48 | Inpatient (IN) | payer OTHER, SELFPAY ==
[2022-07-13] VITALS (7 sets, daily range): BP systolic 146–167; BP diastolic 79–96; PULSE 101–130; RESP 11–24; TEMP 36.1–38; O2SAT 96–100; BMI 26.6; BMI 27.4
--- NOTE | 2022-07-13 | ECG_ITS ---
Test Reason : TACKY/REPEAT Blood Pressure : / mmHG Vent. Rate : 113 BPM Atrial Rate : 113 BPM P-R Int : 156 ms QRS Dur : 078 ms QT Int : 324 ms P-R-T Axes : 066 066 -03 degrees QTc Int : 444 ms Sinus tachycardia T wave abnormality, consider inferior ischemia Abnormal ECG When compared with ECG of 13-JUL-2022 09:30, T wave inversion more evident in Inferior leads Nonspecific T wave abnormality now evident in Lateral leads Referred By: Anne Marie Villarreal Electronically Signed By:Tommie Rey
--- NOTE | ~2022-07-13 | XR_ITS ---
EXAMINATION: XR CHEST CLINICAL INFORMATION: Shortness of breath COMPARISON: 01/11/2022 TECHNIQUE: 2 views of the chest were obtained. FINDINGS: No focal consolidation, pulmonary edema, or pleural effusion. Stable cardiomediastinal silhouette. XR/XR chest 2V IMPRESSION: No acute cardiopulmonary findings.
--- NOTE | ~2022-07-13 | CT_ITS ---
EXAMINATION: CT ABDOMEN AND PELVIS WITHOUT CONTRAST CLINICAL INFORMATION: Abdominal pain COMPARISON: CT abdomen pelvis 03/26/2022 TECHNIQUE: Multidetector volumetric imaging was performed from the superior aspect of the liver through the pubic symphysis. Sagittal and coronal reformatted images were obtained on the technologist's workstation. This CT examination was performed using dose optimization techniques as appropriate, variously including the following: *Automated exposure control *Adjustment of mA and/or kV according to patient size (this includes techniques or standardized protocols for targeted exams where dose is matched to indication/reason for exam; i.e. extremities or head) *Use of iterative reconstruction technique DLP: 494 mGy-cm FINDINGS: LUNG BASES: 5 mm nodule at the left lung base is unchanged (4:14 compare prior 4:59). The lungs are otherwise unremarkable. A small hiatal hernia is present LIVER, GALLBLADDER, AND BILIARY TREE: The liver is enlarged measuring 19.8 cm in cephalocaudad dimension with normal attenuation and shape. Simple cyst in the right lobe of the liver unchanged. No worrisome solid focal hepatic lesion or biliary ductal dilatation is present. The gallbladder contains a single large calcified gallstone without pericholecystic inflammatory changes. PANCREAS: Unremarkable. SPLEEN: Unremarkable. A 1.6 cm subcapsular splenic cyst is unchanged. ADRENAL GLANDS: Mild nodularity of the adrenal glands unchanged KIDNEYS AND URETERS: The kidneys are normal in size, shape, and attenuation. Again seen are benign parapelvic and cortical Bosniak class I renal cysts. There is a tiny punctate renal calculus under 2 mm in size at the left upper pole which is unchanged (4:179 compare prior 4:231). No hydronephrosis, hydroureter, or additional calculi seen. No perinephric stranding. BLADDER: Unremarkable. GASTROINTESTINAL TRACT: The small and large bowel are unremarkable aside from colonic diverticulosis without diverticulitis. The appendix is unremarkable. ABDOMINAL WALL: No significant hernia is appreciated. Small left inguinal hernia seen containing only fat. LYMPH NODES: Normal. VASCULAR: Unremarkable. PELVIC VISCERA: Anteverted uterus is seen within abnormally thickened endometrium at 1.2 cm near the fundus similar to prior. Left ovarian cysts largest measuring 2 cm. OSSEOUS STRUCTURES: Severe degenerative changes seen at L3-L4 with grade 1 retrolisthesis of 3 upon 4. A bone island is seen in S2. CT/CT abdomen pelvis wo IV con IMPRESSION: An etiology for the patient's abdominal pain has not been found. Incidental note made of: 1. Hepatomegaly with benign hepatic cyst. 2. Cholelithiasis without cholecystitis. 3. Splenic cyst. 4. Stable 5 mm left lower lobe lung nodule 5. Bilateral benign renal cysts. 6. Tiny punctate nonobstructing left renal calculus. 7. Abnormally thickened endometrium. Pelvic ultrasound or a gynecologic consult is once again recommended for further evaluation. 8. Severe degenerative changes L3-L4. 9. Other incidental findings as described above. 2017 Fleischner Society Recommendations for Lung Nodule(s): Follow-Up based on size (average of long- and short-axis diameters). Use most suspicious nodule for followup. Single Solid low risk nodule < 6 mm: No routine follow-up imaging is recommended in low risk and high risk patients. These guidelines do not apply to patients younger than 35 years, immunocompromised patients, and patients with cancer. F/u in patients with significant comorbidities as clinically warranted. For lung cancer screening, adhere to Lung-RADS guidelines. Reference: Radiology. 2017 Sudheer; 284(1):228-243
--- NOTE | 2022-07-13 09:13 | ECG_ITS ---
Test Reason : cp Blood Pressure : / mmHG Vent. Rate : 140 BPM Atrial Rate : 140 BPM P-R Int : 144 ms QRS Dur : 074 ms QT Int : 306 ms P-R-T Axes : 076 063 050 degrees QTc Int : 467 ms Sinus tachycardia Right atrial enlargement ST & T wave abnormality, consider inferior ischemia Abnormal ECG When compared with ECG of 26-MAR-2022 03:48, ST now depressed in Lateral leads T wave amplitude has increased in Anterior leads Referred By: Generic ED Physician Electronically Signed By:Tommie Rey
[2022-07-13 09:38] LABS: MANUAL DIFF FLAG NO
[2022-07-13 09:42] LABS: Basophils Percent Auto 0.1 % (0-2); Hematocrit 45.4 % (37.0-47.0); Hemoglobin 15.7 g/dl (12.0-16.0); Imm Gran Abs Auto 0.13 X10*3/uL (0.00-0.03); Imm Gran Pct Auto 0.6 % (0.0-0.4); Lymphocytes Absolute Auto 2.9 X10*3/uL (1.2-4.9); Lymphocytes Percent Auto 13.5 % (20-40); Mean Corpuscular HGB Conc 34.6 g/dl (31.0-35.0); Mean Corpuscular Volume 89.5 fL (80.0-98.0); Mean Platelet Volume 10.4 fL (9.4-12.3); Monocytes Percent Auto 4.8 % (2-11); Neutrophils Absolute Auto 17.2 x10*3/uL (2.0-8.3); Platelet Count 425 X10*3/uL (160-400); Red Blood Count 5.07 X10*6/uL (4.20-5.50); Red Cell Distribution Width 13.1 % (11.0-16.0); White Blood Count 21.2 X10*3/uL (4.8-10.8)
--- NOTE | 2022-07-13 09:57 | ED_ITS ---
HPI - General Adult General Chief complaint: Nausea/Vomiting/Diarrhea <DASHAWN Merrill - Last Filed: 07/13/22 16:00> Stated complaint: vomiting <DASHAWN Merrill - Last Filed: 07/13/22 16:00> Time Seen by Provider: 07/13/22 09:57 <DASHAWN Merrill Last Filed: 07/13/22 16:00> Source: patient <DASHAWN Merrill Last Filed: 07/13/22 16:00> Mode of arrival: ambulatory <DASHAWN Merrill Last Filed: 07/13/22 16:00> Limitations: no limitations <DASHAWN Merrill Last Filed: 07/13/22 16:00> History of Present Illness HPI narrative: Patient is a 61 year old assigned female at with no reported medical history presenting to the emergency department today with nausea and vomiting. Patient states that she has been nauseous and vomiting for the last 48 hours. Patient states that this happens every 2 months but this time seems to be worse than usual. Patient denies any dizziness, lightheadedness, abdominal pain, fever, chills, blurry vision, double vision, loss of vision, chest pain, difficulty breathing, shortness of breath, back pain, night sweats, pain with urination, increased urinary frequency, increased urinary urgency, blood in her urine or stool, syncope or a near syncopal episode, recent trauma or falls, bowel incontinence, bladder incontinence, bowel retention, bladder retention, or any other complaints at this time. <DASHAWN Merrill Last Filed: 07/13/22 16:00> Onset (ago): day(s) (2) <DASHAWN Merrill - Last Filed: 07/13/22 16:00> Severity: mild <DASHAWN Merrill Last Filed: 07/13/22 16:00> Severity scale (1-10): 3 <DASHAWN Merrill Last Filed: 07/13/22 16:00> Relieving factors: none <DASHAWN Merrill Last Filed: 07/13/22 16:00> Exacerbating factors: none <DASHAWN Merrill Last Filed: 07/13/22 16:00> Associated symptoms: nausea/vomiting <DASHAWN Merrill Last Filed: 07/13/22 16:00> Treatments prior to arrival: none <DASHAWN Merrill Last Filed: 07/13/22 16:00> Related Data Home medications: Home Medications Medication Instructions Recorded Confirmed cholecalciferol (vitamin D3) 125 125 mcg PO BEDTIME 07/13/22 07/13/22 mcg (5,000 unit) tablet lisinopril 10 mg tablet 1 tab PO BEDTIME 07/13/22 07/13/22 melatonin 5 mg tablet 15 mg PO BEDTIME 07/13/22 07/13/22 simvastatin 40 mg tablet 1 tab PO BEDTIME 07/13/22 07/13/22 Previous Rx's Medication Instructions Recorded ondansetron HCl 4 mg tablet 4 mg PO Q8H PRN nausea and 07/15/22 vomiting #20 tabs <DASHAWN Merrill Last Filed: 07/13/22 16:00> Allergies/adverse reactions: Allergies Allergy/AdvReac Type Severity Reaction Status Date / Time Penicillins Allergy Unknown Verified 01/11/22 12:24 <DASHAWN Merrill Last Filed: 07/13/22 16:00> Review of Systems Constitutional: Constitutional: Reports no additional constitutional complaints, Denies chills, Denies fever(s) and Denies night sweats <DASHAWN Merrill Last Filed: 07/13/22 16:00> Eyes: Eyes: Reports no additional eye complaints, Denies blurry vision, Denies change in vision, Denies diplopia, Denies eye discharge, Denies loss of vision and Denies eye pain <DASHAWN Merrill Last Filed: 07/13/22 16:00> ENT: Denies dizziness <DASHAWN Merrill Last Filed: 07/13/22 16:00> Cardiovascular: Cardiovascular: Reports no additional cardiovascular complaints, Denies chest pain, Denies lightheadedness, Denies Loss of Consciousness and Denies dyspnea <DASHAWN Merrill Last Filed: 16:00> Respiratory: Respiratory: Reports no additional respiratory complaints and Denies dyspnea <DASHAWN Merrill Last Filed: 07/13/22 16:00> Gastrointestinal: Gastrointestinal: Reports no additional gastrointestinal complaints, Denies abdominal pain, Denies melena, Denies hematochezia, Denies change in bowel habits, Denies change in stool character, Reports nausea and Reports vomiting <DASHAWN Merrill - Last Filed: 07/13/22 16:00> Genitourinary: Genitourinary: Denies hematuria, Denies urinary frequency, Denies dysuria, Denies urinary incontinence, Denies urinary hesitancy and Denies urinary urgency <DASHAWN Merrill - Last Filed: 07/13/22 16:00> Musculoskeletal: Musculoskeletal: Reports no additional musculoskeletal complaints, Denies numbness and Denies tingling <DASHAWN Merrill - Last Filed: 07/13/22 16:00> Neurologic: Denies dizziness, Denies loss of vision, Denies numbness and Denies tingling <DASHAWN Merrill - Last Filed: 07/13/22 16:00> Psychiatric: Psychiatric: Reports no additional psychiatric complaints <DASHAWN Merrill - Last Filed: 07/13/22 16:00> Endocrine: Endocrine: Reports no additional endocrine complaints <DASHAWN Merrill - Last Filed: 07/13/22 16:00> Hematologic/Lymphatic: Hematologic/Lymphatic: Reports no additional hematologic/lymphatic complaints <DASHAWN Merrill Last Filed: 07/13/22 16:00> Allergic/Immunologic: Allergic/Immunologic: Reports no additional allergic/immunologic complaints <DASHAWN Merrill Last Filed: 07/13/22 16:00> PMFSH Past Medical History Attestation statement: The following information was validated with the patient. <DASHAWN Merrill - Last Filed: 07/13/22 16:00> Source: old records reviewed and nursing notes reviewed <DASHAWN Merrill - Last Filed: 07/13/22 16:00> Medical History: Medical History HTN (hypertension) Hyperlipidemia <DASHAWN Merrill - Last Filed: 07/13/22 16:00> Social History Social History: Social History Household Members: None Housing: House Do you presently have visiting nurse or other home services: No Patient Tobacco Use Status: Never used Tobacco Substance Use Type: Marijuana service: No Current occupational status: employed <DASHAWN Merrill - Last Filed: 07/13/22 16:00> Physical Exam ED Vital Signs: Vital Signs - 24 hr 07/13/22 09:10 07/13/22 11:15 07/13/22 13:41 Temperature 97.6 F Pulse Rate 130 H 114 H 120 H Respiratory Rate 24 H 11 L 12 Blood Pressure 156/94 H 159/96 H 146/93 H Pulse Oximetry 99 100 97 Oxygen Delivery Method Room Air Room Air Room Air BMI result Body Mass Index 26.6 <DASHAWN Merrill - Last Filed: 07/13/22 16:00> Vital Signs - 24 hr 07/13/22 09:10 07/13/22 11:15 07/13/22 13:41 Temperature 97.6 F Pulse Rate 130 H 114 H 120 H Respiratory Rate 24 H 11 L 12 Blood Pressure 156/94 H 159/96 H 146/93 H Pulse Oximetry 99 100 97 Oxygen Delivery Method Room Air Room Air Room Air BMI result Body Mass Index 26.6 <Kam Gonzales MD - Last Filed: 07/17/22 11:35> Const General: cooperative, no acute distress, alert and awake <DASHAWN Merrill - Last Filed: 07/13/22 16:00> Nutritional Appearance: well nourished <DASHAWN Merrill - Last Filed: 07/13/22 16:00> Orientation/consciousness: patient oriented x3 <DASHAWN Merrill - Last Filed: 07/13/22 16:00> Limitations: no limitations <DASHAWN Merrill - Last Filed: 07/13/22 16:00> HENMT Head: Yes normal to inspection and Yes atraumatic <DASHAWN Merrill - Last Filed: 07/13/22 16:00> Ears: hearing grossly normal bilaterally and external ears normal <DASHAWN Merrill - Last Filed: 07/13/22 16:00> General nose exam: Normal external nose present, no nasal discharge noted and no epistaxis <DASHAWN Merrill Last Filed: 07/13/22 16:00> Face and sinus: Yes normal facial exam, No abrasion and No laceration <DASHAWN Merrill - Last Filed: 07/13/22 16:00> Mouth: Normal oral and palatal mucosa present, no drooling and no muffled voice <Kristine Cervantes ME - Last Filed: 07/13/22 16:00> Eyes General: appearance normal, both eyes and all related structures <Kristine Cervantes ME - Last Filed: 07/13/22 16:00> Periorbital: periorbital findings normal <Kristine Chilelmaci ME - Last Filed: 07/13/22 16:00> Eyelids: Yes eyelids normal <Kristine Chilelmaci ME - Last Filed: 07/13/22 16:00> Conjunctivae: conjunctivae normal <Kristine Chilelmaci ME - Last Filed: 07/13/22 16:00> Pupils: Equal, round and reactive pupils present <Kristine Chilelmaci ME - Last Filed: 07/13/22 16:00> EOM: EOMs intact bilaterally <dominic ChilelDASHAWN lux - Last Filed: 07/13/22 16:0 0> Neck Neck: Yes normal visual inspection, Yes full ROM and Yes no lymphadenopathy <Kristine Chilelmaci ME - Last Filed: 07/13/22 16:00> Chest Chest palpation & inspection: normal inspection of the chest <dominic Chilelmaci ME - Last Filed: 07/13/22 16:00> Resp Effort & Inspection: normal respiratory effort and able to speak in complete sentences <Kristine Chilelmaci [facility] Last Filed: 07/13/22 16:00> Auscultation: clear to auscultation bilaterally < Helen ME - Last Filed: 07/13/22 16:00> Cardio Rate: tachycardic <Kristine Chilelmaci ME - Last Filed: 07/13/22 16:00> Rhythm: regular rhythm < DASHAWN Cervantes - Last Filed: 07/13/22 16:00> GI Inspection: Yes normal to inspection <Kristine Chilelmaci ME - Last Filed: 07/13/22 16:00> Palpation (GI): Soft to palpation, not firm, nontender, no guarding and not rigid <Julianemily therese Cervantes, ME - Last Filed: 07/13/22 16:00> Neuro General: patient oriented x3 and moves all extremities <DASHAWN Merrill - Last Filed: 07/13/22 16:00> Cranial nerves: Yes Equal, round and reactive pupils present <DASHAWN Merrill - Last Filed: 07/13/22 16:00> Cognition (Neuro): normal cognition <DASHAWN Merrill - Last Filed: 07/13/22 16:00> Motor exam (neuro): 5/5 motor strength present throughout <DASHAWN Merrill - Last Filed: 07/13/22 16:00> Sensory Exam: Normal double simultaneous stimulation for sensation <DASHAWN Merrill - Last Filed: 07/13/22 16:00> Coordination: [id number] test normal <DASHAWN Merrill - Last Filed: 07/13/22 16:00> Extrem General: Yes normal to inspection, Yes full ROM and Yes capillary refill normal <DASHAWN Merrill - Last Filed: 07/13/22 16:00> Psych Appearance: grossly normal <DASHAWN Merrill - Last Filed: 07/13/22 16:00> Mental Status: mental status grossly normal <DASHAWN Merrill - Last Filed: 07/13/22 16:00> Affect: normal affect <DASHAWN Merrill - Last Filed: 07/13/22 16:00> Attitude: cooperative <DASHAWN Merrill - Last Filed: 07/13/22 16:00> Thought process: Normal thought process present <DASHAWN Merrill - Last Filed: 07/13/22 16:00> Thought content: Normal thought content present <DASHAWN Merrill - Last Filed: 3 16:00> Insight: Good insight present (Psych) <DASHAWN Merrill - Last Filed: 07/13/22 16:00> Medications Administered Discontinued Medications Generic Name Dose Route Start Last Admin Trade Name Micaela PRN Reason Stop Dose Admin Amlodipine Besylate 5 mg 07/14/22 15:44 07/14/22 16:12 Amlodipine Besylate 5 Mg Tablet PO 07/14/22 15:45 5 mg ONCE ONE Administration Protocol Atorvastatin Calcium 20 mg 07/13/22 21:00 07/14/22 20:36 Atorvastatin Calcium 20 Mg Tablet PO 20 mg BEDTIME AMY Administration Enoxaparin Sodium 40 mg 07/13/22 15:45 07/14/22 16:14 Enoxaparin Sodium 40 Mg/0.4 Ml Syringe SUBCUT 40 mg Q24H AMY Administration Famotidine 20 mg 07/13/22 21:00 07/15/22 07:34 Famotidine/Pf 20 Mg/2 Ml Vial IVPUSH 20 mg BID AMY Administration Sodium Chloride 1,000 mls @ 999 mls/hr 07/13/22 10:00 07/13/22 11:35 Ns IV 07/13/22 11:00 Infused .Q1H1M AMY Infusion Sodium Chloride 1,000 mls @ 999 mls/hr 07/13/22 12:00 07/13/22 13:31 Ns IV 07/13/22 13:00 Infused .Q1H1M AMY Infusion Ceftriaxone Sodium 2 gm/ 50 mls @ 100 mls/hr 07/13/22 13:17 07/13/22 14:20 Sodium Chloride IV 07/13/22 13:46 Infused ONCE ONE Infusion Sodium Chloride 500 mls @ 500 mls/hr 07/13/22 13:45 07/13/22 14:56 Ns IV 07/13/22 14:44 Infused .Q1H AMY Infusion Dextrose/Sodium Chloride 1,000 mls @ 100 mls/hr 07/13/22 15:45 07/15/22 01:30 D51/2ns IVCONT Infused .Q10H AMY Infusion Ceftriaxone Sodium 1 gm/ 50 mls @ 100 mls/hr 07/14/22 13:00 07/14/22 16:15 Sodium Chloride IV Infused Q24H AMY Infusion Lactated Ringer's 1,000 mls @ 100 mls/hr 07/14/22 07:45 07/15/22 11:26 Lr IVCONT Infused .Q10H AMY Infusion Lisinopril 10 mg 07/14/22 09:00 07/14/22 20:35 Lisinopril 10 Mg Tablet PO 10 mg BEDTIME AMY Administration Protocol Lisinopril 20 mg 07/15/22 09:00 07/15/22 10:01 Lisinopril 20 Mg Tablet PO 20 mg DAILY AMY Administration Protocol Melatonin 15 mg 07/13/22 21:00 07/14/22 20:36 Melatonin 3 Mg Tablet PO 15 mg BEDTIME AMY Administration Ondansetron HCl 4 mg 07/13/22 09:57 07/13/22 10:25 Ondansetron Hcl 4 Mg/2 Ml Vial IVPUSH 07/13/22 09:58 4 mg ONCE ONE Administration Ondansetron HCl 4 mg 07/13/22 16:27 07/14/22 20:29 Ondansetron Hcl 4 Mg/2 Ml Vial IVPUSH 4 mg Q4H PRN Administration Nausea and Vomiting Potassium Chloride 40 meq 07/14/22 07:40 07/14/22 08:04 Potassium Chloride Packet 20 Meq Packet PO 07/14/22 07:41 40 meq ONCE ONE Administration Potassium Chloride 20 meq 07/14/22 15:44 07/14/22 16:13 Potassium Chloride Packet 20 Meq Packet PO 07/14/22 15:45 20 meq ONCE ONE Administration Potassium Chloride 40 meq 07/15/22 07:52 07/15/22 10:01 Potassium Chloride Packet 20 Meq Packet PO 07/15/22 07:53 40 meq ONCE ONE Administration Prochlorperazine Edisylate 5 mg 07/13/22 11:50 07/13/22 12:07 Prochlorperazine Edisylate 10 Mg/2 Ml Vial IVPUSH 07/13/22 11:51 5 mg ONCE ONE Administration Sodium Chloride 3 ml 07/13/22 16:00 07/15/22 07:34 0.9 % Sodium Chloride Flush 3 Ml Syringe IVFLUSH 3 ml QSHIFT [facility] Administration Vitamin D 125 mcg 07/13/22 21:00 07/14/22 20:35 Cholecalciferol (Vitamin D3) 25 Mcg Tablet PO 125 mcg BEDTIME [facility] Administration <DASHAWN Merrill - Last Filed: 07/13/22 16:00> Medications Administered Discontinued Medications Generic Name Dose Route Start Last Admin Trade Name Freq PRN Reason Stop Dose Admin Amlodipine Besylate 5 mg 07/14/22 15:44 07/14/22 16:12 Amlodipine Besylate 5 Mg Tablet PO 07/14/22 15:45 5 mg ONCE ONE Administration Protocol Atorvastatin Calcium 20 mg 07/13/22 21:00 07/14/22 20:36 Atorvastatin Calcium 20 Mg Tablet PO 20 mg BEDTIME AMY Administration Enoxaparin Sodium 40 mg 07/13/22 15:45 07/14/22 16:14 Enoxaparin Sodium 40 Mg/0.4 Ml Syringe SUBCUT 40 mg Q24H AMY Administration Famotidine 20 mg 07/13/22 21:00 07/15/22 07:34 Famotidine/Pf 20 Mg/2 Ml Vial IVPUSH 20 mg BID AMY Administration Sodium Chloride 1,000 mls @ 999 mls/hr 07/13/22 10:00 07/13/22 11:35 Ns IV 07/13/22 11:00 Infused .Q1H1M AMY Infusion Sodium Chloride 1,000 mls @ 999 mls/hr 07/13/22 12:00 07/13/22 13:31 Ns IV 07/13/22 13:00 Infused .Q1H1M AMY Infusion Ceftriaxone Sodium 2 gm/ 50 mls @ 100 mls/hr 07/13/22 13:17 07/13/22 14:20 Sodium Chloride IV 07/13/22 13:46 Infused ONCE ONE Infusion Sodium Chloride 500 mls @ 500 mls/hr 07/13/22 13:45 07/13/22 14:56 Ns IV 07/13/22 14:44 Infused .Q1H AMY Infusion Dextrose/Sodium Chloride 1,000 mls @ 100 mls/hr 07/13/22 15:45 07/15/22 01:30 D51/2ns IVCONT Infused .Q10H AMY Infusion Ceftriaxone Sodium 1 gm/ 50 mls @ 100 mls/hr 07/14/22 13:00 07/14/22 16:15 Sodium Chloride IV Infused Q24H AMY Infusion Lactated Ringer's 1,000 mls @ 100 mls/hr 07/14/22 07:45 07/15/22 11:26 Lr IVCONT Infused .Q10H AMY Infusion Lisinopril 10 mg 07/14/22 09:00 07/14/22 20:35 Lisinopril 10 Mg Tablet PO 10 mg BEDTIME AMY Administration Protocol Lisinopril 20 mg 07/15/22 09:00 07/15/22 10:01 Lisinopril 20 Mg Tablet PO 20 mg DAILY AMY Administration Protocol Melatonin 15 mg 07/13/22 21:00 07/14/22 20:36 Melatonin 3 Mg Tablet PO 15 mg BEDTIME AMY Administration Ondansetron HCl 4 mg 07/13/22 09:57 07/13/22 10:25 Ondansetron Hcl 4 Mg/2 Ml Vial IVPUSH 07/13/22 09:58 4 mg ONCE ONE Administration Ondansetron HCl 4 mg 07/13/22 16:27 07/14/22 20:29 Ondansetron Hcl 4 Mg/2 Ml Vial IVPUSH 4 mg Q4H PRN Administration Nausea and Vomiting Potassium Chloride 40 meq 07/14/22 07:40 07/14/22 08:04 Potassium Chloride Packet 20 Meq Packet PO 07/14/22 07:41 40 meq ONCE ONE Administration Potassium Chloride 20 meq 07/14/22 15:44 07/14/22 16:13 Potassium Chloride Packet 20 Meq Packet PO 07/14/22 15:45 20 meq ONCE ONE Administration Potassium Chloride 40 meq 07/15/22 07:52 07/15/22 10:01 Potassium Chloride Packet 20 Meq Packet PO 07/15/22 07:53 40 meq ONCE ONE Administration Prochlorperazine Edisylate 5 mg 07/13/22 11:50 07/13/22 12:07 Prochlorperazine Edisylate 10 Mg/2 Ml Vial IVPUSH 07/13/22 11:51 5 mg ONCE ONE Administration Sodium Chloride 3 ml 07/13/22 16:00 07/15/22 07:34 0.9 % Sodium Chloride Flush 3 Ml Syringe IVFLUSH 3 ml QSHIFT AMY Administration Vitamin D 125 mcg 07/13/22 21:00 07/14/22 20:35 Cholecalciferol (Vitamin D3) 25 Mcg Tablet PO 125 mcg BEDTIME AMY Administration <Kam Gonzales MD - Last Filed: 07/17/22 11:35> Medical Decision Making Medical Decision Making MDM Narrative: Patient is a 61 year old assigned female at with a history of nausea and vomiting presenting to the emergency department today with nausea and vomiting x2 days. Patient's physical exam showed tachycardia but was otherwise unremarkable. Patient's blood work showed an elevated WBC count of 21.2, a UBN of 46, anion gap of 22, and CR of 1.76. Patient's urine showed an acute infection. Patient's EKG was unremarkable. Patient's chest x-ray showed no acute process. Patient's abdominal CT showed chronic cholelithiasis, splenic cyst, 5mm left lower lobe lung nodule, and an abnormally thickened endometrium. Patient st ates that she is following with the [facility] for the thickened endometrium. Patient's clinical presentation is most consistent with dehydration and not sepsis. (@[id number]). Patient was given IV ABX, IV fluids, and IV anti- emetics. I spoke to the hospitalist team who agreed to admission. I explained my physical exam findings as well as all test results to the patient. I answered all questions asked by the patient. Patient verbalized agreement and understanding with this treatment plan and admission. <DASHAWN Merrill - Last Filed: 07/13/22 16:00> Differential Diagnosis Differential Diagnoses: The differential diagnosis associated with the presentation includes < DASHAWN Merrill - Last Filed: 07/13/22 16:00> urinary tract infection, nausea, vomiting <DASHAWN Merrill - Last Filed: 07/13/22 16:00> Consult Healthcare Provider Management of the patient was discussed with: Hospitalist (agreed to admission) <DASHAWN Merrill - Last Filed: 07/13/22 16:00> Lab Data MDM Lab Attestation statement: I reviewed the patient's lab results. <DASHAWN Merrill - Last Filed: 07/13/22 16:00> Result Diagrams: 07/13/22 09:23 07/13/22 09:23 <DASHAWN Merrill - Last Filed: 07/13/22 16:00> Labs: Lab Results 07/13/22 07/13/22 07/13/22 Range/Units 09:23 09:23 10:16 WBC 21.2 H (4.8-10.8) X10*3/uL RBC 5.07 (4.20-5.50) X10*6/uL Hgb 15.7 (12.0-16.0) g/dl Hct 45.4 (37.0-47.0) % MCV 89.5 (80.0-98.0) fL MCH 31.0 (27.0-33.0) pg MCHC 34.6 (31.0-35.0) g/dl RDW 13.1 (11.0-16.0) % Plt Count 425 H (160-400) X10*3/uL MPV 10.4 (9.4-12.3) fL Immature Gran % (Auto) 0.6 H (0.0-0.4) % Neut % (Auto) 81.0 H (45-73) % Lymph % (Auto) 13.5 L (20-40) % [place] % (Auto) 4.8 (2-11) % Eos % (Auto) 0.0 (0-4) % Baso % (Auto) 0.1 (0-2) % Lymph # (Auto) 2.9 (1.2-4.9) X10*3/uL [place] # (Auto) 1.0 (0.1-1.2) X10*3/uL Eos # (Auto) 0.0 (0.0-0.4) X10*3/uL Baso # (Auto) 0.0 (0.0-0.2) X10*3/uL Abs Immat Gran (auto) 0.13 H (0.00-0.03) X10*3/uL Absolute Neuts (auto) 17.2 H (2.0-8.3) x10*3/uL Absolute Nucleated RBC 0.000 (0.0-0.012) X10*3/uL Nucleated RBC % (auto) 0.0 (0.0-0.2) /100WBC Sodium 147 H (135-145) mmol/L Potassium 3.7 (3.3-5.1) mmol/L Chloride 107 (96-108) mmol/L Carbon Dioxide 22 (22-29) mmol/L Anion Gap 22 H (12-20) BUN 46 H (9-16) mg/dL Creatinine 1.76 H (0.5-1.4) mg/dL Estim Creat Clear Calc 31.5 Estimated GFR 29 Random Glucose 151 H (60-115) mg/dL Lactic Acid (0.5-2.0) mmol/L Calcium 11.0 H (8.4-10.2) mg/dL Total Bilirubin 1.2 H (0.0-1.0) mg/dL Direct Bilirubin 0.3 (0.0-0.5) mg/dL AST 28 (5-31) U/L ALT 23 (0-31) U/L Alkaline Phosphatase 25 L (39-117) U/L Total Protein 8.1 H (6.5-8.0) g/dL Albumin 5.0 (3.5-5.0) g/dL Urine Color Urine Appearance Urine pH (5.0-9.0) Ur Specific [place] (1.005-1.025) Urine Protein (Neg-Trace) mg/dL Urine Glucose (UA) (Negative) mg/dL Urine Ketones (Negative) mg/dL Urine Blood (Negative) Urine Nitrite (Negative) Ur Leukocyte Esterase (Negative) Urine RBC (0-2) /HPF Urine WBC (0-5) /HPF Ur Squamous Epith Cells (0-2) /HPF Urine Bacteria (None Seen) Hyaline Casts (0-2) /LPF Granular Casts Urine Opiates Screen (Not Detect) Urine Fentanyl Screen (Not Detect) Ur Barbiturates Screen (Not Detect) Ur Phencyclidine Scrn (Not Detect) Ur Amphetamines Screen (Not Detect) U Benzodiazepines Scrn (Not Detect) Urine Cocaine Screen (Not Detect) U Marijuana (THC) Screen (Not Detect) Influenza Type A (PCR) NEGATIVE (Negative) Influenza Type B (PCR) NEGATIVE (Negative) RSV RNA Qual (PCR) NEGATIVE (Negative) SARS-CoV-2 RNA (RT-PCR) NEGATIVE (Negative) 07/13/22 07/13/22 07/13/22 Range/Units 12:45 12:45 13:33 WBC (4.8-10.8) X10*3/uL RBC (4.20-5.50) X10*6/uL Hgb (12.0-16.0) g/dl Hct (37.0-47.0) % MCV (80.0-98.0) fL MCH (27.0-33.0) pg MCHC (31.0-35.0) g/dl RDW (11.0-16.0) % Plt Count (160-400) X10*3/uL MPV (9.4-12.3) fL Immature Gran % (Auto) (0.0-0.4) % Neut % (Auto) (45-73) % Lymph % (Auto) (20-40) % [place] % (Auto) (2-11) % Eos % (Auto) (0-4) % Baso % (Auto) (0-2) % Lymph # (Auto) (1.2-4.9) X10*3/uL [place] # (Auto) (0.1-1.2) X10*3/uL Eos # (Auto) (0.0-0.4) X10*3/uL Baso # (Auto) (0.0-0.2) X10*3/uL Abs Immat Gran (auto) (0.00-0.03) X10*3/uL Absolute Neuts (auto) (2.0-8.3) x10*3/uL Absolute Nucleated RBC (0.0-0.012) X10*3/uL Nucleated RBC % (auto) (0.0-0.2) /100WBC Sodium (135-145) mmol/L Potassium (3.3-5.1) mmol/L Chloride (96-108) mmol/L Carbon Dioxide (22-29) mmol/L Anion Gap (12-20) BUN (9-16) mg/dL Creatinine (0.5-1.4) mg/dL Estim Creat Clear Calc Estimated GFR Random Glucose (60-115) mg/dL Lactic Acid 0.9 (0.5-2.0) mmol/L Calcium (8.4-10.2) mg/dL Total Bilirubin (0.0-1.0) mg/dL Direct Bilirubin (0.0-0.5) mg/dL AST (5-31) U/L ALT (0-31) U/L Alkaline Phosphatase (39-117) U/L Total Protein (6.5-8.0) g/dL Albumin (3.5-5.0) g/dL Urine Color Yellow Urine Appearance Cloudy Urine pH 6.0 (5.0-9.0) Ur Specific [place] 1.025 (1.005-1.025) Urine Protein 100 (2+) H (Neg-Trace) mg/dL Urine Glucose (UA) Negative (Negative) mg/dL Urine Ketones 40 (Negative) mg/dL Urine Blood Trace H (Negative) Urine Nitrite Negative (Negative) Ur Leukocyte Esterase Large (3+) H (Negative) Urine RBC 0-2 (0-2) /HPF Urine WBC >50 H (0-5) /HPF Ur Squamous Epith Cells 11-20 (0-2) /HPF Urine Bacteria 1+ (None Seen) Hyaline Casts 6-10 (0-2) /LPF Granular Casts Present Urine Opiates Screen Not Detected (Not Detect) Urine Fentanyl Screen Not Detected (Not Detect) Ur Barbiturates Screen Not Detected (Not Detect) Ur Phencyclidine Scrn Not Detected (Not Detect) Ur Amphetamines Screen Not Detected (Not Detect) U Benzodiazepines Scrn Not Detected (Not Detect) Urine Cocaine Screen Not Detected (Not Detect) U Marijuana (THC) Screen POSITIVE H (Not Detect) Influenza Type A (PCR) (Negative) Influenza Type B (PCR) (Negative) RSV RNA Qual (PCR) (Negative) SARS-CoV-2 RNA (RT-PCR) (Negative) <DASHAWN Merrill - Last Filed: 07/13/22 16:00> Lab Results 07/13/22 07/13/22 07/13/22 Range/Units 09:23 09:23 10:16 WBC 21.2 H (4.8-10.8) X10*3/uL RBC 5.07 (4.20-5.50) X10*6/uL Hgb 15.7 (12.0-16.0) g/dl Hct 45.4 (37.0-47.0) % MCV 89.5 (80.0-98.0) fL MCH 31.0 (27.0-33.0) pg MCHC 34.6 (31.0-35.0) g/dl RDW 13.1 (11.0-16.0) % Plt Count 425 H (160-400) X10*3/uL MPV 10.4 (9.4-12.3) fL Immature Gran % (Auto) 0.6 H (0.0-0.4) % Neut % (Auto) 81.0 H (45-73) % Lymph % (Auto) 13.5 L (20-40) % [place] % (Auto) 4.8 (2-11) % Eos % (Auto) 0.0 (0-4) % Baso % (Auto) 0.1 (0-2) % Lymph # (Auto) 2.9 (1.2-4.9) X10*3/uL [place] # (Auto) 1.0 (0.1-1.2) X10*3/uL Eos # (Auto) 0.0 (0.0-0.4) X10*3/uL Baso # (Auto) 0.0 (0.0-0.2) X10*3/uL Abs Immat Gran (auto) 0.13 H (0.00-0.03) X10*3/uL Absolute Neuts (auto) 17.2 H (2.0-8.3) x10*3/uL Absolute Nucleated RBC 0.000 (0.0-0.012) X10*3/uL Nucleated RBC % (auto) 0.0 (0.0-0.2) /100WBC Sodium 147 H (135-145) mmol/L Potassium 3.7 (3.3-5.1) mmol/L Chloride 107 (96-108) mmol/L Carbon Dioxide 22 (22-29) mmol/L Anion Gap 22 H (12-20) BUN 46 H (9-16) mg/dL Creatinine 1.76 H (0.5-1.4) mg/dL Estim Creat Clear Calc 31.5 Estimated GFR 29 Random Glucose 151 H (60-115) mg/dL Lactic Acid (0.5-2.0) mmol/L Calcium 11.0 H (8.4-10.2) mg/dL Total Bilirubin 1.2 H (0.0-1.0) mg/dL Direct Bilirubin 0.3 (0.0-0.5) mg/dL AST 28 (5-31) U/L ALT 23 (0-31) U/L Alkaline Phosphatase 25 L (39-117) U/L Total Protein 8.1 H (6.5-8.0) g/dL Albumin 5.0 (3.5-5.0) g/dL Urine Color Urine Appearance Urine pH (5.0-9.0) Ur Specific [place] (1.005-1.025) Urine Protein (Neg-Trace) mg/dL Urine Glucose (UA) (Negative) mg/dL Urine Ketones (Negative) mg/dL Urine Blood (Negative) Urine Nitrite (Negative) Ur Leukocyte Esterase (Negative) Urine RBC (0-2) /HPF Urine WBC (0-5) /HPF Ur Squamous Epith Cells (0-2) /HPF Urine Bacteria (None Seen) Hyaline Casts (0-2) /LPF Granular Casts Urine Opiates Screen (Not Detect) Urine Fentanyl Screen (Not Detect) Ur Barbiturates Screen (Not Detect) Ur Phencyclidine Scrn (Not Detect) Ur Amphetamines Screen (Not Detect) U Benzodiazepines Scrn (Not Detect) Urine Cocaine Screen (Not Detect) U Marijuana (THC) Screen (Not Detect) Influenza Type A (PCR) NEGATIVE (Negative) Influenza Type B (PCR) NEGATIVE (Negative) RSV RNA Qual (PCR) NEGATIVE (Negative) SARS-CoV-2 RNA (RT-PCR) NEGATIVE (Negative) 07/13/22 07/13/22 07/13/22 Range/Units 12:45 12:45 13:33 WBC (4.8-10.8) X10*3/uL RBC (4.20-5.50) X10*6/uL Hgb (12.0-16.0) g/dl Hct (37.0-47.0) % MCV (80.0-98.0) fL MCH (27.0-33.0) pg MCHC (31.0-35.0) g/dl RDW (11.0-16.0) % Plt Count (160-400) X10*3/uL MPV (9.4-12.3) fL Immature Gran % (Auto) (0.0-0.4) % Neut % (Auto) (45-73) % Lymph % (Auto) (20-40) % [place] % (Auto) (2-11) % Eos % (Auto) (0-4) % Baso % (Auto) (0-2) % Lymph # (Auto) (1.2-4.9) X10*3/uL [place] # (Auto) (0.1-1.2) X10*3/uL Eos # (Auto) (0.0-0.4) X10*3/uL Baso # (Auto) (0.0-0.2) X10*3/uL Abs Immat Gran (auto) (0.00-0.03) X10*3/uL Absolute Neuts (auto) (2.0-8.3) x10*3/uL Absolute Nucleated RBC (0.0-0.012) X10*3/uL Nucleated RBC % (auto) (0.0-0.2) /100WBC Sodium (135-145) mmol/L Potassium (3.3-5.1) mmol/L Chloride (96-108) mmol/L Carbon Dioxide (22-29) mmol/L Anion Gap (12-20) BUN (9-16) mg/dL Creatinine (0.5-1.4) mg/dL Estim Creat Clear Calc Estimated GFR Random Glucose (60-115) mg/dL Lactic Acid 0.9 (0.5-2.0) mmol/L Calcium (8.4-10.2) mg/dL Total Bilirubin (0.0-1.0) mg/dL Direct Bilirubin (0.0-0.5) mg/dL AST (5-31) U/L ALT (0-31) U/L Alkaline Phosphatase (39-117) U/L Total Protein (6.5-8.0) g/dL Albumin (3.5-5.0) g/dL Urine Color Yellow Urine Appearance Cloudy Urine pH 6.0 (5.0-9.0) Ur Specific [place] 1.025 (1.005-1.025) Urine Protein 100 (2+) H (Neg-Trace) mg/dL Urine Glucose (UA) Negative (Negative) mg/dL Urine Ketones 40 (Negative) mg/dL Urine Blood Trace H (Negative) Urine Nitrite Negative (Negative) Ur Leukocyte Esterase Large (3+) H (Negative) Urine RBC 0-2 (0-2) /HPF Urine WBC >50 H (0-5) /HPF Ur Squamous Epith Cells 11-20 (0-2) /HPF Urine Bacteria 1+ (None Seen) Hyaline Casts 6-10 (0-2) /LPF Granular Casts Present Urine Opiates Screen Not Detected (Not Detect) Urine Fentanyl Screen Not Detected (Not Detect) Ur Barbiturates Screen Not Detected (Not Detect) Ur Phencyclidine Scrn Not Detected (Not Detect) Ur Amphetamines Screen Not Detected (Not Detect) U Benzodiazepines Scrn Not Detected (Not Detect) Urine Cocaine Screen Not Detected (Not Detect) U Marijuana (THC) Screen POSITIVE H (Not Detect) Influenza Type A (PCR) (Negative) Influenza Type B (PCR) (Negative) RSV RNA Qual (PCR) (Negative) SARS-CoV-2 RNA (RT-PCR) (Negative) <Kam Gonzales MD - Last Filed: 07/17/22 11:35> Independent Interpretation I performed an independent interpretation of an: EKG <DASHAWN Merrill - Last Filed: 07/13/22 16:00> Interpretation: Vent. Rate: 140 BPM ? ? Atrial Rate: 140 BPM P-R Int: 144 ms? QRS Dur: 074 ms QT Int: 306 ms ? ? ? P-R-T Axes: 076 063 050 degrees QTc Int: 467 ms ? Sinus tachycardia Right atrial enlargement ST & T wave abnormality, consider inferior ischemia Abnormal ECG When compared with ECG of 26-MAR-2022 03:48, ST now depressed in Lateral leads T wave amplitude has increased in Anterior leads DD/ 0930 <DASHAWN Merrill - Last Filed: 07/13/22 16:00> Radiology Impression Radiologist Impression: My interpretation is in agreement with the radiologist's impression of these imaging studies. EXAMINATION: CT ABDOMEN AND PELVIS WITHOUT CONTRAST? CLINICAL INFORMATION: Abdominal pain? COMPARISON: CT abdomen pelvis 03/26/2022? TECHNIQUE: Multidetector volumetric imaging was performed from the superior aspect of the liver through the pubic symphysis. Sagittal and coronal reformatted images were obtained on the technologist's workstation.? This CT examination was performed using dose optimization techniques as appropriate, variously including the following: *Automated exposure control *Adjustment of mA and/or kV according to patient size (this includes techniques or standardized protocols for targeted exams where dose is matched to indication/reason for exam; i.e. extremities or head) *Use of iterative reconstruction technique DLP: 494 mGy-cm FINDINGS: LUNG BASES: 5 mm nodule at the left lung base is unchanged (4:14 compare prior 4:59). The lungs are otherwise unremarkable. A small hiatal hernia is present LIVER, GALLBLADDER, AND BILIARY TREE: The liver is enlarged measuring 19.8 cm in cephalocaudad dimension with normal attenuation and shape. Simple cyst in the right lobe of the liver unchanged. No worrisome solid focal hepatic lesion or biliary ductal dilatation is present. The gallbladder contains a single large calcified gallstone without pericholecystic inflammatory changes.? PANCREAS: Unremarkable.? SPLEEN: Unremarkable. A 1.6 cm subcapsular splenic cyst is unchanged. ADRENAL GLANDS: Mild nodularity of the adrenal glands unchanged? KIDNEYS AND URETERS: The kidneys are normal in size, shape, and attenuation. Again seen are benign parapelvic and cortical Bosniak class I renal cysts. There is a tiny punctate renal calculus under 2 mm in size at the left upper pole which is unchanged (4:179 compare prior 4:231). No hydronephrosis, hydroureter, or additional calculi seen. No perinephric stranding. ? BLADDER: Unremarkable.? GASTROINTESTINAL TRACT: The small and large bowel are unremarkable aside from colonic diverticulosis without diverticulitis. The appendix is unremarkable.? ABDOMINAL WALL: No significant hernia is appreciated. Small left inguinal hernia seen containing only fat. LYMPH NODES: Normal. VASCULAR: Unremarkable. PELVIC VISCERA: Anteverted uterus is seen within abnormally thickened endometrium at 1.2 cm near the fundus similar to prior. Left ovarian cysts largest measuring 2 cm. OSSEOUS STRUCTURES: Severe degenerative changes seen at L3-L4 with grade 1 retrolisthesis of 3 upon 4. A bone island is seen in S2. CT/CT abdomen pelvis wo IV con IMPRESSION: An etiology for the patient's abdominal pain has not been found. ? Incidental note made of: 1.? Hepatomegaly with benign hepatic cyst. 2.? Cholelithiasis without cholecystitis. 3.? Splenic cyst. 4.? Stable 5 mm left lower lobe lung nodule 5.? Bilateral benign renal cysts. 6.? Tiny punctate nonobstructing left renal calculus. 7.? Abnormally thickened endometrium. Pelvic ultrasound or a gynecologic consult is once again recommended for further evaluation. 8.? Severe degenerative changes L3-L4. 9.? Other incidental findings as described above. ? 2017 Fleischner Society Recommendations for Lung Nodule(s): Follow-Up based on size (average of long- and short-axis diameters). Use most suspicious nodule for followup. ? Single Solid low risk nodule < 6 mm: No routine follow-up imaging is recommended in low risk and high risk patients.? ? These guidelines do not apply to patients younger than 35 years, immunocompromised patients, and patients with cancer. F/u in patients with significant comorbidities as clinically warranted. For lung cancer screening, adhere to Lung-RADS guidelines.? Reference:? Radiology. 2017 Dec; 284(1):228-243 Dictated By: Agusto Franklin MD Signed By: Electronically signed by Agusto Franklin MD 07/13/22 1138 EXAMINATION: XR CHEST CLINICAL INFORMATION: Shortness of breath COMPARISON: 01/11/2022 TECHNIQUE: 2 views of the chest were obtained. FINDINGS: No focal consolidation, pulmonary edema, or pleural effusion. Stable cardiomediastinal silhouette. XR/XR chest 2V IMPRESSION: No acute cardiopulmonary findings. Dictated By: Brice Rojas MD Signed By: Electronically signed by Brice Rojas MD 07/13/22 1317 <DASHAWN Merrill - Last Filed: 07/13/22 16:00> Attestation Attending Attestation: I reviewed [employer]/PA/Resident note, assessment and plan. I agree with the documentation, assessment and plan unless otherwise stated. <Kam Gonzales MD - Last Filed: 07/17/22 11:35> Critical Care Time Critical Care Time Critical Care Time: Yes <DASHAWN Merrill - Last Filed: 07/13/22 16:00> Total Critical Care Time: 30 <DASHAWN Merrill - Last Filed: 07/13/22 16:00> Attestation: I spent 30 minutes of Critical Care Time with this patient. This does not include time spent on separately reported billable procedures. <DASHAWN Merrill - Last Filed: 07/13/22 16:00> Discharge Plan Discharge Clinical Impression: Dehydration, UTI (urinary tract infection) <DASHAWN Merrill - Last Filed: 07/13/22 16:00> Patient Disposition: Admitted As Inpatient <DASHAWN Merrill - Last Filed: 07/13/22 16:00> Interventions: Admission Worksheet (ED) Last Done: 07/13/22 22:05 <DASHAWN Merrill - Last Filed: 07/13/22 16:00> Discharge Date/Time: 07/13/22 22:06 <DASHAWN Merrill - Last Filed: 07/13/22 16:00>
[2022-07-13 10:10] LABS: Alanine Aminotransferase 23 U/L (0-31); Alkaline Phosphatase 25 U/L (39-117); Anion Gap 22 (12-20); Aspartate Amino Transferase 28 U/L (5-31); Bilirubin Direct 0.3 mg/dL (0.0-0.5); Bilirubin Total 1.2 mg/dL (0.0-1.0); Blood Urea Nitrogen 46 mg/dL (9-16); Carbon Dioxide 22 mmol/L (22-29); Chloride 107 mmol/L (96-108); Creatinine Clr Calc Pharmacy 31.5; Estimated Glomerular Filt Rate 29; Glucose Random 151 mg/dL (60-115); Potassium 3.7 mmol/L (3.3-5.1); Sodium 147 mmol/L (135-145); Total Protein 8.1 g/dL (6.5-8.0)
[2022-07-13] MEDS: 0.9 % Sodium Chloride 1,000 ML 999 ML IV ×2 (10:21→12:04)
[2022-07-13] MEDS: ondansetron HCL 4 MG/2 ML VIAL IVPUSH (10:25)
--- NOTE | 2022-07-13 10:32 | PC.NURSE ---
Addendum entered by León Braden RN 07/13/22 10:46: CORRECTION: IV INSERTED IN L HAND NOT R Original Note: PT C/O N/V THAT STARTED A FEW DAYS AGO. DENIES DIARRHEA. SHE REPORTS THAT EVERY 2 MONTHS THIS COMES ON OUT OF NO WHERE, PT REPORTS THAT SHE DOESN'T KNOW WHY THIS KEEPS HAPPENING TO HER. PT REPORTS BEING WORRIED BECAUSE NO ONE CAN GET HER BETTER. HR LOW TO MID 120s, she denies ABD PAIN/CP/IBRAHIM/DIZZINESS/BLURRY VISION. NO CHANGE IN BOWEL PATTERN. ABD SOFT, NON-TENDER, BOWEL SOUNDS ACTIVE ALL QUADRANTS. NO OTHER COMPLAINTS. 20G IV INSERTED R HAND, MEDS GIVEN DOCUMENTED.
[2022-07-13 11:31] LABS: Influenza A PCR NEGATIVE (Negative); Influenza B PCR NEGATIVE (Negative); Resp Syncy Virus RNA Qual PCR NEGATIVE (Negative); SARS COV2 PCR INHOUSE NEGATIVE (Negative)
--- NOTE | 2022-07-13 11:45 | PC.NURSE ---
PT ASKING FOR TWO AND A HALF LITERS OF FLUID, STATES I ALWAYS GET TWO AND A HALF LITERS AND THAT MAKES ME FEEL BETTER . PT IN CT SCAN AT THIS TIME.
[2022-07-13] MEDS: Prochlorperazine Edisylate 10 MG/2 ML VIAL 5 MG IVPUSH (12:07)
--- NOTE | 2022-07-13 12:11 | PC.NURSE ---
IV FLUID AND MED GIVEN DOCUMENTED. PT RESTING QUIETLY, NO APPARENT DISTRESS.
--- NOTE | 2022-07-13 12:49 | PHA.MEDREC ---
Pharmacy Consult ? Medication Reconciliation Pharmacy has completed the medication reconciliation.
[2022-07-13 12:54] LABS: Appearance Urine Cloudy; Color Urine Yellow; Glucose Urine UA Negative (Negative); Leukocyte Esterase Urine Large (3+) (Negative); Nitrite Urine Negative (Negative); Specific Gravity - Urine 1.025 (1.005-1.025); UMIC TRIGGER UACC YES; Urine Blood Trace (Negative); Urine Ketones 40 mg/dL (Negative); Urine Protein 100 (2+) mg/dL (Neg-Trace)
[2022-07-13 13:01] LABS: Amphetamine Screen Urine Not Detected (Not Detect); Barbiturates, Urine Not Detected (Not Detect); Benzodiazepines Screen Urine Not Detected (Not Detect); Cannabinoid Screen Urine POSITIVE (Not Detect); Cocaine Screen Urine Not Detected (Not Detect); Fentanyl, urine Not Detected (Not Detect); Opiate Screen Urine Not Detected (Not Detect); Phencyclidine Screen Urine Not Detected (Not Detect)
[2022-07-13 13:12] LABS: Bacteria Urine 1+ (None Seen); Granular Casts Urine Present; RBC Urine 0-2 /HPF (0-2); UACC Culture Trigger YES; WBC Urine >50 /HPF (0-5)
[2022-07-13] MEDS: cefTRIAXone sodium 2 GM in 0.9 % Sodium Chloride 50 ML IV (13:34)
[2022-07-13 13:55] LABS: Lactic Acid 0.9 mmol/L (0.5-2.0)
[2022-07-13] MEDS: 0.9 % Sodium Chloride 500 ML IV (14:03)
--- NOTE | 2022-07-13 14:14 | PM.IMHP ---
History of Present Illness Date of Service: 07/13/22 Attending physician on admission: Shaw Jernigan Chief Complaint: Nausea and vomiting x2 days Pt is a 61-year-old female with a PMH significant for?HLD and HTN who presents to the ED with?nausea and vomiting x3 days. Pt states she has been experiencing bouts of intractable N/V every couple of months since January 2022 that last for a few days at at time. However, pt states that this time is different and worse. Vomiting on Sunday night began with bright yellow emesis, which is new. Eventually became normal by Sunday. Pt notes she has been eating and drinking very little since Sunday d/t p.o. intake triggering N/V episodes. Pt denies any other symptoms. No abdominal pain, diarrhea. Denies lightheadedness/dizziness, headache, changes to vision. No hemoptysis or hematemesis. Denies chest pain/pressure, palpitations. No shortness of breath. Denies urinary frequency, hematuria, dysuria. No fever, chills. Of note patient is a daily smoker of marijuana, states she began using in 2010 after the of her . In the ED patient was afebrile, tachycardic up to 130 and tachypneic up to 24, and hypertensive. Labs were significant for leukocytosis of 21.2, BUN of 46, creatinine 1.76 (baseline 0.98), lactic acid WNL at 0.9. Patient tested negative for influenza type A and B, RSV, COVID. UA positive for UTI. Tox screen positive for marijuana. CXR showed no acute cardiopulmonary process. CT?of abdomen and pelvis showed no clear etiology for the patient's abdominal pain but multiple incidental findings, including hepatomegaly, cholelithiasis, abnormally thickened endometrium, stable 5 mm left lower lung nodule, splenic cyst, bilateral benign renal cysts, tiny punctate nonobstructing left renal calculus. EKG demonstrated sinus tachycardia with slight ST depressions in lateral leads. Pt was treated with ondansetron, prochlorperazine, and ceftriaxone. Pt will be admitted to the hospital for treatment of UTI, YASHIRA, intractable nausea vomiting with IVF and ABX. Review of Systems Review of Systems: Nausea, vomiting x3 days No chest pain/pressure, palpitations Denies hemoptysis, hematemesis No abdominal pain, diarrhea Denies fever, chills No shortness of breath Yes all other systems are reviewed and are negative [facility] Medical History HTN (hypertension) Hyperlipidemia Social History Patient Tobacco Use Status: Never used Tobacco Advance Directives: No Advance Directives Information Provided: No Meds Allergies Allergy/AdvReac Type Severity Reaction Status Date / Time Penicillins Allergy Unknown Verified 01/11/22 12:24 Active Medications: Current Medications Sodium Chloride (Ns) 500 mls @ 500 mls/hr IV .Q1H AMY Stop: 07/13/22 14:44 Last Admin: 07/13/22 14:03 Dose: 500 mls/hr Pharmacy Consult (Consult Rx Perform Med Rec) 1 each MISCELLANE ONCE PRN PRN Reason: Consult order Home Medications Medication Instructions Recorded Confirmed Last Taken Type cholecalciferol (vitamin D3) 125 125 mcg PO BEDTIME 07/13/22 07/13/22 Unknown History mcg (5,000 unit) tablet lisinopril 10 mg tablet 1 tab PO BEDTIME 07/13/22 07/13/22 07/12/22 History melatonin 5 mg tablet 15 mg PO BEDTIME 07/13/22 07/13/22 Unknown History simvastatin 40 mg tablet 1 tab PO BEDTIME 07/13/22 07/13/22 07/10/22 History Physical Exam Vital Signs and Narrative: Vital Signs: Last Vital Signs Temp 97.6 F 07/13/22 09:10 Pulse 120 H 07/13/22 13:41 Resp 12 07/13/22 13:41 BP 146/93 H 07/13/22 13:41 Pulse Ox 97 07/13/22 13:41 O2 Del Method 07/13/22 13:41 BMI result Body Mass Index 26.6 Constitutional: Alert, in no acute distress. Mental Status: Oriented to person, place and time. Eyes: Pupils are equal, round, and reactive to light. Ear, Nose, and Throat: Oropharynx clear, mucous membranes dry. Ears and nose without deformities. Trachea midline. Respiratory: Clear to auscultation bilaterally. No wheezing, rales, or rhonchi. Cardiovascular: S1, S2, tachycardic. No murmurs, rubs, or gallops. Gastrointestinal: Abdomen soft, non-tender, non-distended. Normal bowel sounds. Neurologic: Cranial nerves II-XII are grossly intact. No focal neurological deficits. Moves all extremities spontaneously. Skin: No rashes or lesions noted. Musculoskeletal: No cyanosis or clubbing. Extremities: No edema. Psychiatric: Normal mood and affect. Results Labs 07/13/22 09:23 07/13/22 09:23 Labs: Laboratory Results - last 24 hr 07/13/22 07/13/22 07/13/22 09:23 09:23 10:16 MCV 89.5 MCH 31.0 MCHC 34.6 RDW 13.1 Plt Count 425 H MPV 10.4 Immature Gran % (Auto) 0.6 H Neut % (Auto) 81.0 H Lymph % (Auto) 13.5 L [place] % (Auto) 4.8 Eos % (Auto) 0.0 Baso % (Auto) 0.1 Lymph # (Auto) 2.9 [place] # (Auto) 1.0 Eos # (Auto) 0.0 Baso # (Auto) 0.0 Abs Immat Gran (auto) 0.13 H Absolute Neuts (auto) 17.2 H Absolute Nucleated RBC 0.000 Nucleated RBC % (auto) 0.0 Anion Gap 22 H Estim Creat Clear Calc 31.5 Estimated GFR 29 Random Glucose 151 H Lactic Acid Calcium 11.0 H Total Bilirubin 1.2 H Direct Bilirubin 0.3 AST 28 ALT 23 Alkaline Phosphatase 25 L Total Protein 8.1 H Albumin 5.0 Urine Color Urine Appearance Urine pH Ur Specific [place] Urine Protein Urine Glucose (UA) Urine Ketones Urine Blood Urine Nitrite Ur Leukocyte Esterase Urine RBC Urine WBC Ur Squamous Epith Cells Urine Bacteria Hyaline Casts Granular Casts Urine Opiates Screen Urine Fentanyl Screen Ur Barbiturates Screen Ur Phencyclidine Scrn Ur Amphetamines Screen U Benzodiazepines Scrn Urine Cocaine Screen U Marijuana (THC) Screen Influenza Type A (PCR) NEGATIVE Influenza Type B (PCR) NEGATIVE RSV RNA Qual (PCR) NEGATIVE SARS-CoV-2 RNA (RT-PCR) NEGATIVE 07/13/22 07/13/22 07/13/22 12:45 12:45 13:33 MCV MCH MCHC RDW Plt Count MPV Immature Gran % (Auto) Neut % (Auto) Lymph % (Auto) [place] % (Auto) Eos % (Auto) Baso % (Auto) Lymph # (Auto) [place] # (Auto) Eos # (Auto) Baso # (Auto) Abs Immat Gran (auto) Absolute Neuts (auto) Absolute Nucleated RBC Nucleated RBC % (auto) Anion Gap Estim Creat Clear Calc Estimated GFR Random Glucose Lactic Acid 0.9 Calcium Total Bilirubin Direct Bilirubin AST ALT Alkaline Phosphatase Total Protein Albumin Urine Color Yellow Urine Appearance Cloudy Urine pH 6.0 Ur Specific [place] 1.025 Urine Protein 100 (2+) H Urine Glucose (UA) Negative Urine Ketones 40 Urine Blood Trace H Urine Nitrite Negative Ur Leukocyte Esterase Large (3+) H Urine RBC 0-2 Urine WBC >50 H Ur Squamous Epith Cells 11-20 Urine Bacteria 1+ Hyaline Casts 6-10 Granular Casts Present Urine Opiates Screen Not Detected Urine Fentanyl Screen Not Detected Ur Barbiturates Screen Not Detected Ur Phencyclidine Scrn Not Detected Ur Amphetamines Screen Not Detected U Benzodiazepines Scrn Not Detected Urine Cocaine Screen Not Detected U Marijuana (THC) Screen POSITIVE H Influenza Type A (PCR) Influenza Type B (PCR) RSV RNA Qual (PCR) SARS-CoV-2 RNA (RT-PCR) Imaging Radiologist's Impressions: Impressions Abdomen/Pelvis CT 07/13/22 10:52 IMPRESSION: An etiology for the patient's abdominal pain has not been found. Incidental note made of: 1. Hepatomegaly with benign hepatic cyst. 2. Cholelithiasis without cholecystitis. 3. Splenic cyst. 4. Stable 5 mm left lower lobe lung nodule 5. Bilateral benign renal cysts. 6. Tiny punctate nonobstructing left renal calculus. 7. Abnormally thickened endometrium. Pelvic ultrasound or a gynecologic consult is once again recommended for further evaluation. 8. Severe degenerative changes L3-L4. 9. Other incidental findings as described above. 2017 Fleischner Society Recommendations for Lung Nodule(s): Follow-Up based on size (average of long- and short-axis diameters). Use most suspicious nodule for followup. Single Solid low risk nodule < 6 mm: No routine follow-up imaging is recommended in low risk and high risk patients. These guidelines do not apply to patients younger than 35 years, immunocompromised patients, and patients with cancer. F/u in patients with significant comorbidities as clinically warranted. For lung cancer screening, adhere to Lung-RADS guidelines. Reference: Radiology. 2017 Dec; 284(1):228-243 Chest X-Ray 07/13/22 11:44 IMPRESSION: No acute cardiopulmonary findings. Assessment and Plan (1) Dehydration: Status: Acute (2) UTI (urinary tract infection): Status: Acute (3) YASHIRA (acute kidney injury): Status: Acute (4) Cyclic vomiting syndrome: Status: Acute Plan Pt is a 61-year-old female with a PMH significant for?HLD and HTN who presents to the ED with?nausea and vomiting x3 days. Pt states she has been experiencing bouts of intractable N/V every couple of months since January 2022 that last for a few days at at time. However, pt states that this time is different and worse. Pt will be admitted to the hospital for treatment of UTI, YASHIRA, intractable nausea vomiting with IVF and ABX Cyclic vomiting syndrome Possibly secondary to marijuana use Pt currently denies N/V, only when takes food or liquid po IVF: D5W 1/2 saline @ 100mls/hr Ondansetron prn Pepcid 20 bid Clear diet, advance as tolerated UTI UA positive for UTI, leukocytosis Ceftriaxone day 06/15 Follow cultures Sepsis, not severe Patient meets sepsis criteria: Tachycardic, tachypneic, WBC 21.2 Lactic acid 0.9 Patient receiving IVF, IV ABX YASHIRA Patient's creatinine at 1.76, likely secondary to dehydration due to decreased p.o. intake and GI losses IVF Hold lisinopril ST depression in lateral leads EKG showed sinus tachycardia with ST depressions in lateral leads Patient not complaining of chest pain/pressure, SOB Repeat EKG HTN Patient with history of poorly-controlled hypertension Hold EMIL-I d/t YASHIRA, resume when appropriate Hydralazine 5mg q6 prn for SBP >180 Monitor BP Pulmonary nodule Incidental CT finding of stable 5 mm left lower lobe lung nodule Kiley Society recommendations for single low risk nodule <6mm: No routine follow-up imaging is recommended in low and high risk patients Abnormally thickened endometrium Incidental CT finding Patient received pelvic ultrasound at OBGYN last month at [facility] and has a scheduled hysterectomy Follow-up outpatient with [facility] HLD Continue statin Full Code Attending:?Dr. Jernigan DVT Prophylaxis: Lovenox Pt will require a hospitalization of at least two nights for treatment of?UTI, N/V, and YASHIRA with IVF and abx. Time Spent With Patient Time: Total time managing care of this patient today ____ minutes. Quality Stroke Does the patient have a stroke diagnosis?: No VTE Prior VTE?: No VTE Risk Level:: Medical - moderate - high VTE Device Contraindication: Treatment Not Indicated VTE Drug Contraindication: N/A - Med Ordered
[2022-07-13] MEDS: Dextrose 5 % and 0.45 % NaCl 1,000 ML 100 ML IVCONT (16:04)
[2022-07-13] MEDS: 0.9 % Sodium Chloride Flush 3 ML SYRINGE IVFLUSH (16:05)
[2022-07-13] MEDS: Enoxaparin Sodium 40 MG/0.4 ML SYRINGE SUBCUT (16:09)
--- NOTE | 2022-07-13 16:50 | MHC.EDTECH ---
Repeat EKG was preformed and tiger texted to Anne Marie TAMEZ who reviewed report.
[2022-07-13] MEDS: Melatonin 3 MG TABLET 15 MG PO (20:29)
[2022-07-13] MEDS: Cholecalciferol (Vitamin D3) 25 MCG TABLET 125 MCG PO (20:30)
[2022-07-13] MEDS: Atorvastatin Calcium 20 MG TABLET PO (20:30)
[2022-07-13] MEDS: Famotidine/PF 20 MG/2 ML VIAL IVPUSH (20:30)
[2022-07-14] MEDS: Dextrose 5 % and 0.45 % NaCl 1,000 ML 100 ML IVCONT (01:56)
[2022-07-14 06:31] LABS: Mean Corpuscular Hemoglobin 31.5 pg (27.0-33.0); Mean Corpuscular Volume 90.1 fL (80.0-98.0); Mean Platelet Volume 10.4 fL (9.4-12.3); Platelet Count 347 X10*3/uL (160-400); Red Blood Count 4.44 X10*6/uL (4.20-5.50); White Blood Count 14.5 X10*3/uL (4.8-10.8)
[2022-07-14 07:08] LABS: Anion Gap 15 (12-20); Blood Urea Nitrogen 23 mg/dL (9-16); Calcium 9.3 mg/dL (8.4-10.2); Carbon Dioxide 23 mmol/L (22-29); Chloride 108 mmol/L (96-108); Creatinine Clr Calc Pharmacy 62.5; Estimated Glomerular Filt Rate > 60; Glucose Random 140 mg/dL (60-115); Potassium 3.1 mmol/L (3.3-5.1); Sodium 143 mmol/L (135-145)
[2022-07-14 07:58] VITALS: BP 173/102; PULSE 99; RESP 18; TEMP 36.9; O2SAT 98
[2022-07-14] MEDS: Lactated Ringers 1,000 ML 100 ML IVCONT ×2 (08:04→20:28)
[2022-07-14] MEDS: Potassium Chloride Packet 20 MEQ PACKET 40 MEQ PO (08:04)
[2022-07-14] MEDS: 0.9 % Sodium Chloride Flush 3 ML SYRINGE IVFLUSH ×2 (08:05→16:13)
[2022-07-14] MEDS: Famotidine/PF 20 MG/2 ML VIAL IVPUSH ×2 (08:05→20:29)
[2022-07-14] MEDS: lisinopriL 10 MG TABLET PO ×2 (08:32→20:35)
[2022-07-14] MEDS: ondansetron HCL 4 MG/2 ML VIAL IVPUSH ×2 (08:32→20:29)
--- NOTE | 2022-07-14 09:27 | MHC.CM.PN ---
Addendum entered by Ju Salas RN 07/14/22 09:50: PCP IS Elvis RODRIGUEZ OF [facility] Original Note: PATIENT IS INDEPENDENT WITH HER ADLS. NO HCP ON FILE. CASE MANAGEMENT TO ASSIST WITH COMPLETION IF PATIENT DECIDES. PLAN WILL BE HOME - SELF CARE
[2022-07-14] MEDS: cefTRIAXone sodium 1 GM in 0.9 % Sodium Chloride 50 ML IV (14:09)
--- NOTE | 2022-07-14 14:15 | P.PNIM_ITS ---
Subjective Subjective Date of Service: 07/14/22 Interval History: Seen in follow-up for cyclic vomiting syndrome, YASHIRA, UTI Interval history: Still reports feeling quite unwell. Very nauseous with several episodes of watery diarrhea, no vomiting. Only able to tolerate a small amount of chicken broth. Renal function normalized. Now has hypokalemia 3.1 Review of Systems Review of Systems: Yes all other systems are reviewed and are negative Physical Exam Vital Signs: Vital Signs: Last Vital Signs Temp 98.5 F 07/14/22 07:58 Pulse 99 07/14/22 07:58 Resp 18 07/14/22 07:58 BP 173/102 H 07/14/22 07:58 Pulse Ox 98 07/14/22 07:58 O2 Del Method 07/14/22 07:58 BMI result Body Mass Index 27.4 Constitutional - Awake but drowsy, uncomfortable appearing Eyes - PERRLA, EOMI Cardiovascular - S1S2, RRR, No edema Respiratory - Normal lung expansion, Normal respiratory effort, No respiratory distress, CTA bilaterally Gastrointestinal - mild diffuse tenderness to palpation without guarding or rebound. ND Extremities - no calf tenderness bilaterally, no swelling Skin - Warm/Dry Neurological - Alert & oriented x3 Psychological - Appropriate affect Objective Data Active Medications Atorvastatin Calcium (Atorvastatin Calcium 20 Mg Tablet) 20 mg PO BEDTIME [facility] Last Admin: 07/13/22 20:30 Dose: 20 mg Documented By: LILLIAN Docusate Sodium (Docusate Sodium 100 Mg Capsule) 100 mg PO DAILY PRN PRN Reason: Constipation Enoxaparin Sodium (Enoxaparin Sodium 40 Mg/0.4 Ml Syringe) 40 mg SUBCUT Q24H [facility] Last Admin: 07/13/22 16:09 Dose: 40 mg Documented By: TANIYA Famotidine (Famotidine/Pf 20 Mg/2 Ml Vial) 20 mg IVPUSH BID [facility] Last Admin: 07/14/22 08:05 Dose: 20 mg Documented By: VILMA Ceftriaxone Sodium 1 gm/ (Sodium Chloride) 50 mls @ 100 mls/hr IV Q24H [facility] Last Admin: 07/14/22 14:09 Dose: 100 mls/hr Documented By: VILMA Lactated Ringer's (Lr) 1,000 mls @ 100 mls/hr IVCONT .Q10H [facility] Last Admin: 07/14/22 08:04 Dose: 100 mls/hr Documented By: VILMA Lisinopril (Lisinopril 10 Mg Tablet) 10 mg PO BEDTIME [facility]; Protocol Last Admin: 07/14/22 08:32 Dose: 10 mg Documented By: VILMA Melatonin (Melatonin 3 Mg Tablet) 15 mg PO BEDTIME [facility] Last Admin: 07/13/22 20:29 Dose: 15 mg Documented By: LILLIAN Ondansetron HCl (Ondansetron Hcl 4 Mg/2 Ml Vial) 4 mg IVPUSH Q4H PRN PRN Reason: Nausea and Vomiting Last Admin: 07/14/22 08:32 Dose: 4 mg Documented By: VILMA Pharmacy Consult (Consult Rx Perform Med Rec) 1 each MISCELLANE ONCE PRN PRN Reason: Consult order Sodium Chloride (0.9 % Sodium Chloride Flush 3 Ml Syringe) 3 ml IVFLUSH QSHIFT [facility] Last Admin: 07/14/22 08:05 Dose: 3 ml Documented By: VILMA Vitamin D (Cholecalciferol (Vitamin D3) 25 Mcg Tablet) 125 mcg PO BEDTIME [facility] Last Admin: 07/13/22 20:30 Dose: 125 mcg Documented By: LILLIAN Labs 07/14/22 06:02 07/14/22 06:02 Labs: Laboratory Results - last 24 hr 07/14/22 07/14/22 06:02 06:02 MCV 90.1 MCH 31.5 MCHC 35.0 RDW 13.0 Plt Count 347 MPV 10.4 Absolute Nucleated RBC 0.000 Nucleated RBC % (auto) 0.0 Anion Gap 15 Estim Creat Clear Calc 62.5 Estimated GFR > 60 Random Glucose 140 H Calcium 9.3 D Microbiology Microbiology Results: Microbiology 07/13/22 00:00 Urine Culture - Final Urine clean catch - Urine puga top Assessment and Plan (1) Cyclic vomiting syndrome: Status: Acute (2) YASHIRA (acute kidney injury): Status: Acute (3) Dehydration: Status: Acute Plan Pt is a 61-year-old female with a PMH significant for?HLD and HTN who presents to the ED with?nausea and vomiting x3 days. Pt states she has been experiencing bouts of intractable N/V every couple of months since January 2022 that last for a few days at at time. However, pt states that this time is different and worse. Pt will be admitted to the hospital for treatment of UTI, YASHIRA, intractable nausea vomiting with IVF and ABX #Cyclic vomiting syndrome -counseled on marijuana cessation -still quite nauseous, though no vomiting. However is not tolerating clear liquids due to significant nausea -change fluids to LR at 100mls/hr -Ondansetron prn -Pepcid 20 bid -Clear diet, advance as tolerated -Leukocytosis, likely reactive, trending down #Abnormal UA -Asymptomatic, UC contaminated -DC ceftriaxone #YASHIRA -Patient's creatinine at 1.76, likely secondary to dehydration due to decreased p.o. intake and GI losses- resolved -IVF #ST depression in lateral leads -EKG showed sinus tachycardia with ST depressions in lateral leads -Patient not complaining of chest pain/pressure, SOB -Repeat EKG #HTN -Patient with history of poorly-controlled hypertension -Resume lisinopril. Hydralazine 5mg q6 prn for SBP >180 -Monitor BP #Pulmonary nodule -Incidental CT finding of stable 5 mm left lower lobe lung nodule -Kiley Society recommendations for single low risk nodule <6mm:? No routine follow-up imaging is recommended in low and high risk patients #Abnormally thickened endometrium -Incidental CT finding -Patient received pelvic ultrasound at OBGYN last month at [facility] and has a scheduled hysterectomy -Follow-up outpatient with OBN #HLD -Continue statin Full Code Discussed with Dr. Jernigan DVT Prophylaxis: Lovenox Pt will requires ongoing inpatient stay for management of cyclic vomiting syndrome with severe persistent nausea and intolerance of diet requiring IVF and gradual advancement of diet Time Spent With Patient Time: Total time managing care of this patient today ____ minutes. Quality Stroke Does the patient have a stroke diagnosis?: No VTE Prior VTE?: No VTE Risk Level:: Medical - moderate - high VTE Device Contraindication: Treatment Not Indicated VTE Drug Contraindication: N/A - Med Ordered
[2022-07-14 15:16] VITALS: BP 174/110; PULSE 75; RESP 18; TEMP 37; O2SAT 97
[2022-07-14 15:19] LABS: Anion Gap 17 (12-20); Blood Urea Nitrogen 17 mg/dL (9-16); Calcium 9.4 mg/dL (8.4-10.2); Carbon Dioxide 21 mmol/L (22-29); Chloride 106 mmol/L (96-108); Creatinine Clr Calc Pharmacy 65.4; Estimated Glomerular Filt Rate > 60; Glucose Random 113 mg/dL (60-115); Potassium 3.2 mmol/L (3.3-5.1); Sodium 141 mmol/L (135-145)
[2022-07-14] MEDS: amLODIPine Besylate 5 MG TABLET PO (16:12)
[2022-07-14] MEDS: Potassium Chloride Packet 20 MEQ PACKET PO (16:13)
[2022-07-14] MEDS: Enoxaparin Sodium 40 MG/0.4 ML SYRINGE SUBCUT (16:14)
[2022-07-14 17:50] VITALS: BP 172/99; PULSE 89; RESP 18; TEMP 37.1; O2SAT 98
[2022-07-14 19:02] VITALS: BP 177/103; PULSE 94; RESP 18; TEMP 37; O2SAT 97
[2022-07-14] MEDS: Cholecalciferol (Vitamin D3) 25 MCG TABLET 125 MCG PO (20:35)
[2022-07-14] MEDS: Atorvastatin Calcium 20 MG TABLET PO (20:36)
[2022-07-14] MEDS: Melatonin 3 MG TABLET 15 MG PO (20:36)
[2022-07-14 23:29] VITALS: BP 150/80; PULSE 88; RESP 18; TEMP 36.1; O2SAT 98
[2022-07-15] MEDS: Lactated Ringers 1,000 ML 100 ML IVCONT (05:52)
[2022-07-15 06:29] LABS: MANUAL DIFF FLAG NO
[2022-07-15 06:41] LABS: Basophils Percent Auto 0.1 % (0-2); Eosinophils Percent Auto 0.4 % (0-4); Hematocrit 38.8 % (37.0-47.0); Hemoglobin 12.9 g/dl (12.0-16.0); Imm Gran Abs Auto 0.04 X10*3/uL (0.00-0.03); Imm Gran Pct Auto 0.4 % (0.0-0.4); Lymphocytes Absolute Auto 3.6 X10*3/uL (1.2-4.9); Lymphocytes Percent Auto 34.9 % (20-40); Mean Corpuscular HGB Conc 33.2 g/dl (31.0-35.0); Mean Corpuscular Hemoglobin 30.6 pg (27.0-33.0); Mean Corpuscular Volume 92.2 fL (80.0-98.0); Mean Platelet Volume 10.4 fL (9.4-12.3); Monocytes Absolute Auto 0.9 X10*3/uL (0.1-1.2); Monocytes Percent Auto 8.4 % (2-11); Neutrophils Absolute Auto 5.7 x10*3/uL (2.0-8.3); Neutrophils Percent Auto 55.8 % (45-73); Platelet Count 294 X10*3/uL (160-400); Red Blood Count 4.21 X10*6/uL (4.20-5.50); Red Cell Distribution Width 12.3 % (11.0-16.0); White Blood Count 10.3 X10*3/uL (4.8-10.8)
[2022-07-15] MEDS: 0.9 % Sodium Chloride Flush 3 ML SYRINGE IVFLUSH (07:34)
[2022-07-15] MEDS: Famotidine/PF 20 MG/2 ML VIAL IVPUSH (07:34)
[2022-07-15 07:44] LABS: Anion Gap 11 (12-20); Blood Urea Nitrogen 15 mg/dL (9-16); Carbon Dioxide 29 mmol/L (22-29); Chloride 102 mmol/L (96-108); Estimated Glomerular Filt Rate > 60; Glucose Random 101 mg/dL (60-115); Potassium 3.3 mmol/L (3.3-5.1); Sodium 139 mmol/L (135-145)
[2022-07-15 08:00] VITALS: BP 161/92; PULSE 85; RESP 18; TEMP 36.7; O2SAT 98
[2022-07-15] MEDS: Potassium Chloride Packet 20 MEQ PACKET 40 MEQ PO (10:01)
[2022-07-15] MEDS: lisinopriL 20 MG TABLET PO (10:01)
--- NOTE | 2022-07-15 14:12 | P.DS_ITS ---
DS: Providers Provider Date of Service: 07/15/22 Date of admission: 07/13/22 15:30 Primary care physician: Unknown Physician DS: Diagnosis Discharge Diagnosis (1) Cyclic vomiting syndrome: Status: Acute (2) YASHIRA (acute kidney injury): Status: Acute (3) Dehydration: Status: Acute DS: Summary Hospital Course Hospital Course: HPI on admission Chief Complaint: Nausea and vomiting x2 days Pt is a 61-year-old female with a PMH significant for?HLD and HTN who presents to the ED with?nausea and vomiting x3 days. Pt states she has been experiencing bouts of intractable N/V every couple of months since January 2022 that last for a few days at at time. However, pt states that this time is different and worse. Vomiting on Sunday night began with bright yellow emesis, which is new. Eventually became normal by Sunday. Pt notes she has been eating and drinking? very little since Sunday d/t p.o. intake triggering N/V episodes. Pt denies any other symptoms. No abdominal pain, diarrhea. Denies lightheadedness/dizziness, headache, changes to vision.? No hemoptysis or hematemesis.? Denies chest pain/pressure, palpitations.? No shortness of breath.? Denies urinary frequency, hematuria, dysuria.? No fever, chills.? Of note patient is a daily smoker of marijuana, states she began using in 2010 after the of her . In the ED patient was afebrile, tachycardic up to 130 and tachypneic up to 24, and hypertensive. Labs were significant for leukocytosis of 21.2, BUN of 46, creatinine 1.76 (baseline 0.98), lactic acid WNL at 0.9.? Patient tested negative for influenza type A and B, RSV, COVID.? UA positive for UTI.? Tox screen positive for marijuana. CXR showed no acute cardiopulmonary process. CT?of abdomen and pelvis showed no clear etiology for the patient's abdominal pain but multiple incidental findings, including hepatomegaly, cholelithiasis, abnormally thickened endometrium, stable 5 mm left lower lung nodule, splenic cyst, bilateral benign renal cysts, tiny punctate nonobstructing left renal calculus. EKG demonstrated sinus tachycardia with slight ST depressions in lateral leads. Pt was treated with ondansetron, prochlorperazine, and ceftria xone. Pt will be admitted to the hospital for treatment of UTI, YASHIRA, intractable nausea vomiting with IVF and ABX. Hospital course: Pt was admitted for management of cannabis hyperemesis syndrome. However, given her diarrhea, and loss also possible that symptoms were related to viral gastroenteritis. She was resuscitated with IV fluids with normalization of renal function. Reactive leukocytosis resolved with resolution of vomiting. Persistent nausea treated with ondansetron. He was eventually able to tolerate clear liquids and diet was advanced to regular bland diet without recurrence of vomiting. She will be discharged home with ondansetron p.r.n. and recommendations for bland diet. Strongly advised cannabis cessation. Initial UA was also questionable for UTI and she was initially treated with ceftriaxone. However, culture was contaminated with urogenital cathleen and patient was asymptomatic so antibiotics were discontinued. CT abdomen/pelvis on arrival did show abnormal endometrial thickening and patient will continue following with Ob/surgery for scheduled hysterectomy. There was also an incidental 5 mm left lower lung nodule seen on arrival on CT. However given low risk of patient, additional follow-up is not indicated. Time spent discussing smoking cessation with patient: more than 10 minutes Status at Discharge Functional status at discharge: independent ambulation Overall status at discharge: patient is progressing back to baseline Time Spent with Patient Time attestation: Total time managing care of this patient today ____ minutes. Discharge coordination time: Greater than 30 minutes Quality: Safe Use of Opioids Does Pt have an Active Cancer Diagnosis on the Problem List?: No Quality: Stroke Does the patient have a stroke diagnosis?: No Physical Exam Vital Signs: Vital Signs: Last Vital Signs Temp 98.0 F 07/15/22 08:00 Pulse 85 07/15/22 08:00 Resp 18 07/15/22 08:00 BP 161/92 H 07/15/22 08:00 Pulse Ox 98 07/15/22 08:00 O2 Del Method 07/15/22 08:00 BMI result Body Mass Index 27.4 Constitutional - Awake and Alert, No apparent distress Eyes - PERRLA, EOMI Cardiovascular - S1S2, RRR, No edema Respiratory - Normal lung expansion, Normal respiratory effort, No respiratory distress, CTA bilaterally Gastrointestinal - NT / ND; +BS; No rebound or guarding Extremities - no calf tenderness bilaterally, no swelling Skin - Warm/Dry Neurological - Alert & oriented x3 Psychological - Appropriate affect DS: Data Data Completed and Pending Labs on day of discharge: Laboratory Results - last 24 hr 07/14/22 07/15/22 07/15/22 14:25 06:12 06:12 WBC 10.3 RBC 4.21 Hgb 12.9 Hct 38.8 MCV 92.2 MCH 30.6 MCHC 33.2 RDW 12.3 Plt Count 294 MPV 10.4 Immature Gran % (Auto) 0.4 Neut % (Auto) 55.8 Lymph % (Auto) 34.9 Morrow % (Auto) 8.4 Eos % (Auto) 0.4 Baso % (Auto) 0.1 Lymph # (Auto) 3.6 Morrow # (Auto) 0.9 Eos # (Auto) 0.0 Baso # (Auto) 0.0 Abs Immat Gran (auto) 0.04 H Absolute Neuts (auto) 5.7 Absolute Nucleated RBC 0.000 Nucleated RBC % (auto) 0.0 Sodium 141 139 Potassium 3.2 L 3.3 Chloride 106 102 Carbon Dioxide 21 L 29 Anion Gap 17 11 L BUN 17 H 15 Creatinine 0.86 0.76 Estim Creat Clear Calc 65.4 74.0 Estimated GFR > 60 > 60 Random Glucose 113 101 Calcium 9.4 9.0 Preliminary micro results at discharge 07/13/22 13:33 Blood Culture - Preliminary Blood - Venous No growth after 24 hours. 07/13/22 13:33 Blood Culture - Preliminary Blood - Venous No growth after 24 hours. Discharge Plan Discharge Anticipated Discharge Date/Time: 07/15/22 14:05 Patient Disposition: Home, Self-Care Discharge Diagnosis: Cannabis hyperemesis syndrome, viral gastroenteritis, acute kidney injury Referrals: Physician,Unknown J [Primary Care Provider] - 1 Week Discharge Medications: New ondansetron HCl 4 mg tablet 4 mg PO Q8H PRN (Reason: nausea and vomiting) Qty: 20 0RF Continued simvastatin 40 mg tablet 1 tab PO BEDTIME lisinopril 10 mg tablet 1 tab PO BEDTIME melatonin 5 mg Tablet 15 mg PO BEDTIME cholecalciferol (vitamin D3) 125 mcg (5,000 unit) Tablet 125 mcg PO BEDTIME Discharge Orders: Discharge Order (Routine); Ordered 07/15/22 Ordered By: Kerrie Morales Diet: bland until symptoms gone Activity on Discharge: As tolerated Stand Alone Forms: Patient Portal Discharge page Care Plan Goals: Continue to gradually advance diet Resolve nausea and diarrhea Continue pushing oral fluids Health Concerns: Cannabis hyperemesis syndrome related to cannabis use Viral gastroenteritis Plan of Treatment: You were admitted for management of nausea, vomiting, diarrhea. Given your history, this may have been triggered by cannabis use. However with the diarrhea, it is also possible that you had a viral gastroenteritis. As a result of your vomiting, diarrhea, and decreased oral intake, you also had acute kidney injury. You are aggressively treated with IV fluids with normalization of kidney function. Your diet was gradually advanced to a regular bland diet without any recurrence of vomiting. You continue using Imodium or ondansetron as needed for your symptoms. I have sent a prescription of ondansetron on to your pharmacy if needed. I would also recommend cannabis cessation altogether to prevent recurrence of cannabis hyperemesis syndrome. Please follow-up with PCP soon Final testing for UTI was negative, so you do not need further antibiotics. Follow up with OBGYN/Surgery for scheduled hysterectomy given endometrial thickening Assessment: As above
--- NOTE | 2022-07-15 14:34 | MHC.CM.PN ---
PT WILL DC HOME TODAY WITH NO SERVICES VIA SELF TRANSPORT
--- NOTE | 2022-07-17 14:05 | P.CDIR_ITS ---
Documented by User: Nicole Portillo RN 07/17/22 14:08 Retrospective Query PHYSICIAN'S DOCUMENTATION REQUEST Date of Query: 07/17/22 1490 Patient Name: Geri Samuel Admit Date: 07/13/22 Dear Doctor, A review of the medical record indicates additional documentation may be needed. Please review below and update the documentation accordingly. Clinical Indicators: The diagnosis of Sepsis was documented on 07/13/22 but is not consistently noted in subsequent documentation. Risk Factors/Clinical Indicators/Treatments Per H&P: UTI UA positive for UTI, leukocytosis Ceftriaxone day 06/15 Follow cultures Sepsis, not severe Patient meets sepsis criteria:? Tachycardic, tachypneic, WBC 21.2 Lactic acid 0.9 Patient receiving IVF, IV ABX Please clarify the following: * Sepsis was present on admission and is now resolved * Sepsis was ruled out * Sepsis is still a likely, suspected, probable diagnosis * Other (please specify) * Unable to determine Use of terms such as suspected, likely, concern for, or probable (associated with a specific diagnosis that is being evaluated, monitored, or treated as if it exists) are acceptable and can be coded in the inpatient setting, when documented at the time of discharge. Thank you, Nicole Portillo RN Extension: [phone] Please use your independent medical judgment in providing your response. THIS QUERY IS PART OF THE PERMANENT MEDICAL RECORD Documented by User: DASHAWN Barrientos 07/17/22 15:08 Retrospective Query Provider Response: Sepsis (was ruled out. No infection.)
== END 2022-07-15 14:56 | disposition home or self-care (01) | DRG 249 ==
LOC: HO.ED 15:28 → HO.EDOVER 16:08 → HO.S3 20:02
PROVIDERS: Physician Assistant Medical; Admitting Provider Student in an Organized Health Care Education/Training Program; Emergency Provider Emergency Medicine; PCP Internal Medicine; Visit Provider Physician Assistant
DX: A08.4 Viral intestinal infection, unspecified (principal); N17.9 Acute kidney failure, unspecified; R11.2 Nausea with vomiting, unspecified; E78.5 Hyperlipidemia, unspecified; R93.89 Abnormal findings on diagnostic imaging of other specified body structures; F12.90 Cannabis use, unspecified, uncomplicated; R91.1 Solitary pulmonary nodule; I10 Essential (primary) hypertension; E86.0 Dehydration; N39.0 Urinary tract infection, site not specified; Z20.822 Contact with and (suspected) exposure to COVID-19; Z88.0 Allergy status to penicillin; Z79.899 Other long term (current) drug therapy
CPT/HCPCS: 0241U; 36415; 71046; 74176; 80048; 80076; 80307; 81001; 81003; 83605; 85025; 85027; 87040; 87086; 93005; 99285; J0696; J1650; J2405

== ENCOUNTER → 2022-08-30 08:35 | Outpatient (BNVA) | payer OTHER, SELFPAY | PROVIDERS: PCP Internal Medicine; Visit Provider Nurse Practitioner Family | DX: Z13.89 Encounter for screening for other disorder (principal) ==

== ENCOUNTER 2022-10-18 08:44 | Day surgery (SDC) | payer OTHER, SELFPAY ==
--- NOTE | 2022-10-17 12:53 | HO.ANESPROP2 ---
Documented by User: Tabatha Delaney NP 10/17/22 12:55 HPI - Anesthesia Eval Consult details Narrative: 61yo F for Upper Endoscopy and Colonoscopy [facility] Active Problems Active Problems: All Active Problems (Updated 08/30/22 @ 18:05 by SANFORD Isaacs) Tinnitus (Acute) Cyclic vomiting syndrome (Acute) YASHIRA (acute kidney injury) (Acute) Dehydration (Acute) UTI (urinary tract infection) (Acute) Past Medical History Medical History Cholelithiasis HTN (hypertension) Hyperlipidemia Skin tag of anus Family History Family History (Updated 08/30/22 @ 08:50 by Nikkie Chavez CMA) Father Dialysis patient Son Hypophosphatasia Surgical History Surgical History History of bilateral tubal ligation History of gynecologic surgery Social History Social History (Updated 08/30/22 @ 08:51 by Nikkie Chavez CMA) Household Members: None Housing: House Do you presently have visiting nurse or other home services: No Alcohol intake: current Alcohol intake frequency: 0-2 drinks per day Alcohol type: wine Patient Tobacco Use Status: Former Tobacco user Quit Date: 1991 Use of substances other than those prescribed or required for medical reasons: No Substance Use Type: Marijuana Are you DNR?: No Advance Directives: No Advance Directives Information Provided: Yes service: No Current occupational status: employed Meds Allergies Allergy/AdvReac Type Severity Reaction Status Date / Time Penicillins Allergy Unknown Verified 08/30/22 08:48 Home Medications Medication Instructions Recorded Confirmed Last Taken Type cholecalciferol (vitamin D3) 125 125 mcg PO BEDTIME 07/13/22 07/13/22 Unknown History mcg (5,000 unit) tablet lisinopril 10 mg tablet 1 tab PO BEDTIME 07/13/22 07/13/22 07/12/22 History melatonin 5 mg tablet 15 mg PO BEDTIME 07/13/22 07/13/22 Unknown History simvastatin 40 mg tablet 1 tab PO BEDTIME 07/13/22 07/13/22 07/10/22 History DayQuil Allergy 12-HR 15 ml PO DAILY 10/17/22 10/17/22 Unknown History ondansetron HCl 4 mg tablet 4 mg PO Q8H PRN nausea/vomiting 10/17/22 10/17/22 Unknown History Exam Exam Date and Time: October 17, 2022 1253 Pertinent Lab Results Pertinent Lab Results: Laboratory Tests 07/15/22 07/15/22 06:12 06:12 WBC 10.3 Hgb 12.9 Hct 38.8 Plt Count 294 Sodium 139 Potassium 3.3 Chloride 102 Carbon Dioxide 29 BUN 15 Creatinine 0.76 Narrative Narrative: EKG 07/2022 ([facility] with cyclical vomiting) Vent. Rate : 140 BPM ? ? Atrial Rate : 140 BPM ?? P-R Int : 144 ms? QRS Dur : 074 ms ? ? QT Int : 306 ms ? ? ? P-R-T Axes : 076 063 050 degrees ?? QTc Int : 467 ms ? Sinus tachycardia Right atrial enlargement ST & T wave abnormality, consider inferior ischemia Abnormal ECG When compared with ECG of 26-MAR-2022 03:48, ST now depressed in Lateral leads T wave amplitude has increased in Anterior leads Airway Adult Head Mouth w/Numbe Teeth: 1. Assessment and Plan Assessment Anesthesia Assessment: Chart Reviewed Documented by User: Radha Castro MD 10/18/22 10:32 [facility] Past Medical History Medical History Cholelithiasis HTN (hypertension) Hyperlipidemia Skin tag of anus Family History Family History (Updated 08/30/22 @ 08:50 by Nikkie Chavez CMA) Father Dialysis patient Son Hypophosphatasia Family history of problems with anesthesia: No Surgical History Surgical History History of bilateral tubal ligation History of gynecologic surgery History of Problems with Anesthesia: No Social History Social History (Updated 08/30/22 @ 08:51 by Nikkie Chavez CMA) Household Members: None Housing: House Do you presently have visiting nurse or other home services: No Alcohol intake: current Alcohol intake frequency: 0-2 drinks per day Alcohol type: wine Patient Tobacco Use Status: Former Tobacco user Quit Date: 1991 Use of substances other than those prescribed or required for medical reasons: No Substance Use Type: Marijuana Are you DNR?: No Advance Directives: No Advance Directives Information Provided: Yes service: No Current occupational status: employed Meds Allergies Allergy/AdvReac Type Severity Reaction Status Date / Time Penicillins Allergy Unknown Verified 08/30/22 08:48 Home Medications Medication Instructions Recorded Confirmed Last Taken Type cholecalciferol (vitamin D3) 125 125 mcg PO BEDTIME 07/13/22 07/13/22 Unknown History mcg (5,000 unit) tablet lisinopril 10 mg tablet 1 tab PO BEDTIME 07/13/22 07/13/22 07/12/22 History melatonin 5 mg tablet 15 mg PO BEDTIME 07/13/22 07/13/22 Unknown History simvastatin 40 mg tablet 1 tab PO BEDTIME 07/13/22 07/13/22 07/10/22 History DayQuil Allergy 12-HR 15 ml PO DAILY 10/17/22 10/17/22 Unknown History ondansetron HCl 4 mg tablet 4 mg PO Q8H PRN nausea/vomiting 10/17/22 10/17/22 Unknown History Exam Airway Mallampati Class: II TM Dist: >3cm Neck ROM: Full Partial: Lower Adult Head Mouth w/Numbe Teeth: 1. Heart: rr Lungs: cta Assessment and Plan Assessment Anesthesia Assessment: Anesthesia Plan Discussed Final Anesthetic Review Family History of Problems with Anesthesia: No History of Problems with Anesthesia: No NPO: Yes ASA Class: II Final Preanesthetic Review: No Changes in Pt Med Stat, Meds/Allgs Chart Reviewed, Consent Obtained/Reviewed and Anes Risks/Benef Reviewed Patient Risk: Low Procedure Risk: Low Anesthetic Plan Anesthetic Plan: MAC: Disposition: Standard PACU
[2022-10-18 08:51] VITALS: BMI 28.0
[2022-10-18 08:59] VITALS: BP 134/82; PULSE 98; RESP 16; TEMP 36.4; O2SAT 97
[2022-10-18] MEDS: Lactated Ringers 1,000 ML 100 ML IVCONT (09:14)
[2022-10-18 10:55] VITALS: BP 95/50; PULSE 76; RESP 16; TEMP 36.7; O2SAT 94
--- NOTE | 2022-10-18 11:00 | P.BOP_ITS ---
Brief Operative Note Date of Service: 10/18/22 Pre-op diagnosis: Screening, N/V Post-op diagnosis: other (Polyps, Hiatal hernia, Gastritis) Procedure: EGD with biopsies, Colonoscopy to the cecum and TI with biopsies, hot snare polypectomy at 15cm, cold snare polypectomy and bx/removal of polyps in ascending colon. Surgeon: Johan Rodriguez Anesthesia: MAC Was an Rf Microwave Engineer used for this Procedure?: No Estimated blood loss (mL): 2.0 Pathology: other (A. Descending duodenum B. Gastric antrum C. EG Junction at 36cm D. Polyp at 15cm E. Ascending colon F. Ascending colon polyps G. Descending colon) Condition: stable
[2022-10-18 11:09] VITALS: BP 99/64; PULSE 73; RESP 18; O2SAT 96
[2022-10-18 11:24] VITALS: BP 132/66; PULSE 66; RESP 16; TEMP 36.6; O2SAT 98
--- NOTE | 2022-10-18 22:19 | OP_ITS ---
DATE OF SERVICE: 10/18/2022 SURGEON: Johan Rodriguez MD INDICATIONS: The patient presents for evaluation of intermittent nausea, vomiting, and colorectal cancer screening. Full consent was obtained from her for this, including risks of bleeding and perforation. PREOPERATIVE DIAGNOSIS: POSTOPERATIVE DIAGNOSIS: PROCEDURE PERFORMED: ESTIMATED BLOOD LOSS: COMPLICATIONS: ANESTHESIA: Monitored anesthesia care. ASSISTANTS: SPECIMENS: PROCEDURES PERFORMED: Esophagogastroduodenoscopy with biopsies and colonoscopy to the cecum with biopsy and removal of polyps, cold snare polypectomy, and hot snare polypectomy. DESCRIPTION OF PROCEDURE: The patient was placed in the left lateral decubitus position. The Olympus video gastroscope was passed in the posterior oropharynx and upper esophagus under direct vision. The scope was passed slowly to the distal esophagus. The gastroesophageal junction appeared at 36 cm. There were some areas of erythema and edema, but no evidence of any esophagitis nor definitive Chowdhury's mucosa. The scope entered the stomach. There was a small hiatal hernia. The scope was advanced to the pylorus and the duodenum was cannulated to the descending portion. The duodenum including the bulb appeared normal without mass or ulceration. Biopsies were obtained from the second and third portions of the duodenum. The scope was withdrawn back in the stomach. The gastric antrum had some mild areas of erythema and edema, but no erosions or ulceration. There was good peristalsis. Biopsies were obtained from the gastric antrum. The scope was retroflexed visualizing the proximal stomach carefully which appeared normal, without any sign of mass nor ulceration. The scope was straightened and withdrawn back into the esophagus. Biopsies were obtained from the EG junction at 36 cm. Proximal to that the esophageal mucosa appeared normal. The scope was withdrawn from the patient. She was turned around for the colonoscopy. The digital rectal exam revealed no abnormalities. The Olympus video pediatric colonoscope was entered into the rectum and advanced easily to the cecum. Once in the cecum, I did identify a normal-appearing cecal pouch with appendiceal orifice and a normal-appearing ileocecal valve. The terminal ileum was cannulated and appeared normal. The scope was withdrawn back in the colon. The entire cecum and ileocecal valve appeared normal. The scope was slowly withdrawn assessing all mucosal surfaces carefully. Preparation was excellent. I did not visualize any sign of colitis nor angiodysplasias. Random biopsies were obtained from the ascending and descending colon. In the ascending colon there were three polyps. Two of these were approximately 3 or 4 mm in size and were removed completely with a cold biopsy forceps. The other polyp was approximately 5 mm in size and removed completely with a cold snare polypectomy. At 15 cm was an approximately 12 mm polyp which was removed with hot snare polypectomy and recovered by withdrawing it on the tip of the scope. The scope was advanced back to the polypectomy site which appeared clean, without any sign of residual polyp nor bleeding. I did not visualize any other polyps. There was a mild amount of sigmoid diverticulosis. In the rectum, the scope was retroflexed visualizing internal hemorrhoids, but no other pathology. The scope was straightened. The scope was withdrawn from the patient. She tolerated both procedures well and was returned to the recovery area in stable condition. IMPRESSION: 1. Colon polyps. 2. Diverticulosis. 3. Rule out microscopic colitis. 4. Rule out celiac disease. 5. Internal hemorrhoids. 6. Gastritis. 7. Gastroesophageal reflux. PLAN: The results of the biopsies will be checked. I would recommend a repeat colonoscopy in 5 years. She was advised not to use any aspirin or NSAIDs for 1 week. As far as her upper GI complaints are concerned, she does report that things have been stable since she has not been using marijuana. She has not had any nausea nor vomiting since July. I do not think she needs to be on any chronic acid suppression at this point. If things are stable, she would otherwise see me on a p.r.n. basis. MD JOSELYN Soto/FEDERICO / [phone] WANDA
== END 2022-10-18 12:19 | disposition home or self-care (01) ==
PROVIDERS: PCP Internal Medicine; Visit Provider Internal Medicine
PROC: (CPT 45385; principal; 2022-10-18 09:20)
DX: Z12.11 Encounter for screening for malignant neoplasm of colon (principal); D12.2 Benign neoplasm of ascending colon; D12.7 Benign neoplasm of rectosigmoid junction; K57.30 Diverticulosis of large intestine without perforation or abscess without bleeding; K64.8 Other hemorrhoids; R11.2 Nausea with vomiting, unspecified; K29.70 Gastritis, unspecified, without bleeding; K29.80 Duodenitis without bleeding; K44.9 Diaphragmatic hernia without obstruction or gangrene; K80.20 Calculus of gallbladder without cholecystitis without obstruction; I10 Essential (primary) hypertension; E78.5 Hyperlipidemia, unspecified; Z79.899 Other long term (current) drug therapy; Z88.0 Allergy status to penicillin; Z87.891 Personal history of nicotine dependence
CPT/HCPCS: 45385; 45380; 43239; 88305; 88342